=== PATIENT | female | born 1965 | race Caucasian/White ===

== ENCOUNTER → 2016-11-28 | Outpatient (CLI) | payer BC, OTHER ==
[~2016-11-28] VITALS: Ht 162.6 cm; Wt 98.1 kg
[~2016-11-28] MED LIST: ADVAIR 100-501 EACH INH; ADVAIR 250-501 EACH INH; ALEVE220 MG PO; AMITRIPTYLINE H50 M4 PO; AMITRIPTYLINE100 MG PO; ANTIVERT12.5 MG PO; BENADRYL25 MG PO; BUSPIRONE HCL10 MG PO; BUSPIRONE HCL15 MG PO; BUTALB-APAP-CA1 EACH PO; COMPAZINE10 MG RECTAL; COMPAZINE25 MG RECTAL; FIORICET 50-301 EACH PO; FIORICET-COD 51 EACH PO; FIORINAL WITH1 EACH PO; FLAGYL 250 MG250 MG PO; FLONASE 0.05%50 MCG NASAL; LAMICTAL100 MG PO; LAMICTAL150 MG PO; LEVOTHYROXIN0.025 MG PO; LUNESTA3 MG PO; MECLIZINE HCL25 MG PO; NAPROSYN500 MG PO; NORCO 10-325 T1 EACH PO; OXYCODONE-ACET1 EAC2 PO; PERCOCET PO; PREVACID30 MG PO; PRISTIQ50 M1 PO; TOPAMAX 100 MG100 MG PO; TRAMADOL 50 MG50 MG PO; VERAPAMIL ER240 M1 PO; VISTARIL 25 MG25 M1 PO; VOLTAREN100 GM TP; XANAX 0.25 MG0.25 MG PO; XANAX 0.5 MG0.5 MG PO; XARELTO10 MG PO; ZANAFLEX4 MG PO; ZONEGRAN100 MG PO; ZYRTEC10 MG PO
--- NOTE | ~2016-11-28 | HPC ---
[facility] [place] [address] [address] [place] [address] PAIN MANAGEMENT CONSULTATION Name: KELSI TURCIOS Room #: REG NICANOR Reji.#: [id number] Admission: 11/28/16 Attend Phys: Jose Cruz Golden MD Discharge: Date of : 65 Report #: [id number] THIS REPORT FOR: //name// CC: Jose Cruz Chen MD DATE OF SERVICE: 11/28/2016 Followup visit for chronic back pain, osteoarthritis, bilateral knee pain, chronic intractable headaches and management of high risk medications with polypharmacy. This is a 2-month followup visit for the patient. She continues on several centrally acting medications, although we have continued to try and taper these to the lowest effective dose. She reports today that her pain is 2 under current regimen. She has had some increasing headaches recently, she relates much due to stress. She has also had several colds and wonders about immunosuppression due to the fact that she keeps getting infections. She will follow up with Dr. Chen. Today, she says that her pain is mostly in her head. She has chronic achy headaches as well as some cervical pain with radiations through the occiput. MEDICATIONS: Reviewed and reconciled. She remains on multiple centrally acting medications including BuSpar, Topamax, Compazine p.r.n., oxycodone infrequently no more than 30 tablets per month for breakthrough pain, Fioricet without codeine, amitriptyline, meclizine, levothyroxine, Naprosyn as needed, Antivert as needed, alprazolam, fluticasone, Lunesta, verapamil, , Prevacid. ALLERGIES: RIBOFLAVIN, CEFUROXIME. PHYSICAL EXAMINATION: GENERAL: She is pleasant female, is a bit anxious today. VITAL SIGNS: Blood pressure 153/84, heart rate 81 and a BMI is 37.1. CARDIAC: Rhythm was regular. CHEST: Clear. HEENT: She has some nasal congestion. EXTREMITIES: She has tenderness across her back and across her neck with range of motion of the spine. No radicular features noted in the exam today. IMPRESSION: 1. Chronic intractable headache disorder, mixed tension type and migrainous features. She now also appears to have some sinus congestion type headache as well, which worsens her underlying headache disorder. [address] [address] PAIN MANAGEMENT CONSULTATION Name: KELSI TURCIOS Room #: REG CL Reji.#: [id number] Admission: 11/28/16 Attend Phys: Jose Cruz Golden MD Discharge: Date of : 65 Report #: [id number] 2. Osteoarthritis, bilateral knees. 3. Management of chronic intractable pain with medications, high risk medication profile with polypharmacy. RECOMMENDATIONS: We reviewed her terms of our opioid agreement today. I renewed her medications that I have agreed to provide through our clinic, which includes the oxycodone, Fioricet, amitriptyline, Topamax and prochlorperazine. She continues to use Voltaren gel topically. Followup visit is scheduled in 3 months. <ELECTRONICALLY SIGNED> By: Jose Cruz Golden MD 12/28/16 1130 1319 0720 Jose Cruz Golden MD /nt
[2016-11-28 09:18] VITALS: BP 153/84
== END ==
LOC: PAIN 07:13
DX: M17.0 Bilateral primary osteoarthritis of knee (principal); I10 Essential (primary) hypertension

== ENCOUNTER → 2017-02-06 | Outpatient (CLI) | payer BC ==
[~2017-02-06] VITALS: Ht 162.6 cm; Wt 99.9 kg
--- NOTE | ~2017-02-06 | HPC ---
[facility] [address] [place] [address] PAIN MANAGEMENT CONSULTATION Name: KELSI TURCIOS Room #: REG NICANOR WassermanFadiGurwinderFadi#: [id number] Admission: 02/06/17 Attend Phys: Jose Cruz Golden MD Discharge: Date of : 65 Report #: [id number] THIS REPORT FOR: //name// CC: Jose Cruz Chen DATE OF SERVICE: 02/06/2017 Followup visit for chronic back pain, headaches, osteoarthritis and joint pain with degenerative osteoarthritis. The patient returns to the pain clinic today for renewal of her pain medicines. Please see previous dictations for multiple discussions regarding polypharmacy. We have reduced some of her medicines, but she remains on still a fair number of centrally acting medicines. I have agreed to continue prescribing them and her doses are low. She is not on much in the way of an opioid, which seems to be the focus of most tension these days. She is having kind of a rough week. Much of this she attributes to the weather. She has had some other social stressors as well. Pain is a 4/10. Today, her primary pain generator is headache on the left side. She said it also involves a sensation into her teeth. It is constant and dull. REVIEW OF SYSTEMS: Positive for hypertension, nausea, vomiting, stomach problems, fatigue, weakness, weight change with gain, asthma, wheezing, frequent urination, nocturia, nervousness, depression and insomnia. PHYSICAL EXAMINATION: GENERAL: She is pleasant, a little bit anxious. VITAL SIGNS: Blood pressure 155/88, heart rate 76 and respirations 20. BMI is 37.8. NEUROLOGIC: She easily moves from sitting to standing position, ambulates without difficulty. She has some occipital tenderness on the right and left. Cervical range of motion is normal. RESPIRATORY: Breathing is comfortable, with no evidence of dyspnea or shortness of breath. ABDOMEN: Soft. IMPRESSION: 1. Chronic intractable pain with multiple generators including chronic headache disorder, mixed tension type and migrainous features. 2. Osteoarthritis. 3. General malaise. 4. Anxiety and depression. 5. Polypharmacy. 6. Management of low-dose opioid medication. [facility] [address] [place] [address] PAIN MANAGEMENT CONSULTATION Name: KELSI TURCIOS [facility] #: [facility] [id number] Admission: 02/06/17 Attend Phys: Jose Cruz Golden MD Discharge: Date of : 65 Report #: [id number] PLAN: 1. I have renewed her medication under terms of an opioid agreement as well as discussion about polypharmacy once again. 2. I suggested the importance of daily exercise and outside walk. 3. Stress management techniques have been discussed. 4. Followup visit planned in 3 months. By: [id number] Jose Cruz Golden MD /nt
[2017-02-06 10:35] VITALS: BP 155/88
== END | disposition home or self-care (01) ==
LOC: PAIN 06:46
DX: M19.90 Unspecified osteoarthritis, unspecified site (principal); F41.9 Anxiety disorder, unspecified; F32.9 Major depressive disorder, single episode, unspecified; I10 Essential (primary) hypertension; R51 Headache

== ENCOUNTER → 2017-04-21 | Outpatient (CLI) | payer BC ==
[~2017-04-21] VITALS: Ht 160 cm; Wt 98.5 kg
[~2017-04-21] MED LIST changes: +MOBIC15 MG PO
--- NOTE | ~2017-04-21 | HPC ---
[facility] [place] [address] [place] [address] PAIN MANAGEMENT CONSULTATION Name: KELSI TURCIOS Room #: REG NICANOR WassermanFadiGurwinderFadi#: [id number] Admission: 04/21/17 Attend Phys: Jose Cruz Golden MD Discharge: Date of : 65 Report #: [id number] THIS REPORT FOR: //name// CC: Jose Cruz Chen MD DATE OF SERVICE: 04/21/2017 DATE OF REGISTRATION: 04/21/2017. REASON FOR VISIT: Followup visit for chronic headache disorder and management of polypharmacy. SUBJECTIVE: The patient returns to pain clinic today for a 20-minute followup visit. She is doing pretty well. She has some ongoing stressors that include family and social stress, but otherwise, she is doing pretty well. She remains on a number of different medications. We have tapered some of them. We reviewed each of her centrally acting medications carefully. I have agreed to provide her with low-dose opioids, but my concern is not so much that but the multiple medications that she is taking. She suffers from anxiety and depression. There have been no other health changes other than some orthopedic issues at her wrist. She has tenderness of her thumb and inflammation. She has seen Dr. Precious Garcia who has performed fluoroscopically guided injections of the metacarpal-carpal joint on the right and left thumbs and placed her in a brace. Surgery may be indicated at some point. Headaches today are 3. They are generally worse with weather changes. In this stable weather, it has been good. PHYSICAL EXAMINATION: GENERAL: Her affect is pleasant. She has always been quite easy going in my office. She does not show overt signs of severe anxiety or depression. VITAL SIGNS: Her blood pressure is 144/99, heart rate 87, BMI is 38.5. EXTREMITIES: I examined her wrist with localized tenderness noted in each thumb and metacarpal-carpal joint. HEAD: Otherwise, no occipital tenderness today or temporal discomfort. IMPRESSION: 1. Chronic intractable mixed type headaches. 2. Osteoarthritis, particularly bilateral thumbs. 3. Anxiety and depression. 4. Polypharmacy. 5. Management of high risk medication combination. PLAN: I renewed her Fioricet, amitriptyline, Compazine, oxycodone and Topamax. [address] [address] PAIN MANAGEMENT CONSULTATION Name: KELSI TURCIOS Room #: REG [facility] Reji.#: [id number] Admission: 04/21/17 Attend Phys: Jose Cruz Golden MD Discharge: Date of : 65 Report #: [id number] Precautions regarding her use have been given. She has good track record with these medicines, understands they are affecting her. I will see her back in the pain clinic in 3 months. <ELECTRONICALLY SIGNED> By: Jose Cruz Golden MD 04/24/17 1714 1648 2 Jose Cruz Golden MD /dago
[2017-04-21 14:05] VITALS: BP 144/99
== END ==
LOC: PAIN 06:15
DX: G44.89 Other headache syndrome (principal); M19.042 Primary osteoarthritis, left hand; M19.041 Primary osteoarthritis, right hand; F41.9 Anxiety disorder, unspecified

== ENCOUNTER → 2017-07-07 | Outpatient (CLI) | payer BC ==
[~2017-07-07] VITALS: Ht 160 cm; Wt 99.6 kg
[~2017-07-07] MED LIST changes: +CELEBREX 200 M200 M1 PO; +GLUCOSAMINE HC500 MG PO
--- NOTE | ~2017-07-07 | HPC ---
[facility] [place] [address] [place] [address] PAIN MANAGEMENT CONSULTATION Name: KELSI TURCIOS Room #: REG NICANOR Mendoza#: [id number] Admission: 07/07/17 Attend Phys: Jose Cruz Golden MD Discharge: Date of : 65 Report #: [id number] THIS REPORT FOR: //name// CC: Jose Cruz Chen MD DATE OF REGISTRATION: 07/07/2017. Followup visit for management of high risk medications and polypharmacy. HISTORY OF PRESENT ILLNESS: The patient returns to pain clinic today and I am going to continue her on her same medication dose. She is doing reasonably well and is stable. Denies significant side effects. Our focus has always been on polypharmacy not so much on opioids and I have elected to continue her on her current regimen, which has been reduced to a point where she feels that she cannot make further adjustments. She deals with daily headaches, which are mixed type and has pain in her hands, mostly in her thumbs. She was given of Dr. Francisco Covarrubias as health program specialist for referral. She has some history of anxiety and depression, but is I think stable at this point in time. PHYSICAL EXAMINATION: GENERAL: She is pleasant and outgoing. VITAL SIGNS: Blood pressure 133/76, heart rate 76, respirations 18. She is 5 feet 3 inches, 160 pounds, BMI is 38.9. EXTREMITIES: Examination of the hands reveals a palmar rubor. This is not noticed elsewhere in the body. There is local tenderness at the metacarpal phalangeal joint as well as along the metacarpal carpal articulation of each hand. IMPRESSION: 1. Chronic intractable mixed type headaches. She has daily headache component and also tension headaches. 2. Osteoarthritis involving the hands. Much of this is in the metacarpal phalangeal and the metacarpal carpal articulation of the thumb on each hand. 3. Polypharmacy regimen, closely monitor. 4. Management of opioid medication, small dose and high risk medication. PLAN: I renewed medications as follows, Topamax 100 mg once daily with 30 tablets, 2 refills and amitriptyline 100 mg at bedtime, 90 tablets for 3 months, Fioricet plain without codeine 1 tablet 3 times daily as needed for severe headache, #50 with 2 refills. She uses less than 2 tablets a day on average and finally oxycodone 10/325 one tablet b.i.d. p.r.n. severe headache, #30, she uses this only for most severe headaches. She meets criteria for continuing these medications, she note reports improvement in analgesia and activity. She reports no significant side effects [address] [place] [address] PAIN MANAGEMENT CONSULTATION Name: KELSI TURCIOS Chay Room #: REG NICANOR Grubbs#: [id number] Admission: 07/07/17 Attend Phys: Jose Cruz Golden MD Discharge: Date of : 65 Report #: [id number] that we have not addressed and she is careful about maintaining her medications cautiously under terms of our opioid agreement. Followup visit planned in 3 months. <ELECTRONICALLY SIGNED> By: Jose Cruz Golden MD 07/10/17 1351 0822 0855 Jose Cruz Golden MD /nt
[2017-07-07 11:27] VITALS: BP 133/76
== END ==
LOC: PAIN 07:02
DX: Z76.0 Encounter for issue of repeat prescription (principal); R51 Headache; M19.042 Primary osteoarthritis, left hand; M19.041 Primary osteoarthritis, right hand; Z79.891 Long term (current) use of opiate analgesic; Z88.8 Allergy status to other drugs, medicaments and biological substances; Z79.899 Other long term (current) drug therapy; Z87.891 Personal history of nicotine dependence

== ENCOUNTER → 2017-09-15 | Outpatient (CLI) | payer BC ==
[~2017-09-15] VITALS: Ht 162.6 cm; Wt 98.9 kg
[~2017-09-15] MED LIST changes: +NAPROXEN; +TOPAMAX 25 MG T25 M1 PO
--- NOTE | ~2017-09-15 | HPC ---
[facility] [place] [address] PAIN MANAGEMENT CONSULTATION Name: KELSI TURCIOS Room #: REG NNEKASukh Grubbs#: [id number] Admission: 09/15/17 Attend Phys: Jose Cruz Golden MD Discharge: Date of : 65 Report #: [id number] THIS REPORT FOR: //name// CC: Jose Cruz Chen DATE OF SERVICE: 09/15/2017 REASON FOR VISIT: Followup visit for polypharmacy and chronic headaches. HISTORY OF PRESENT ILLNESS: The patient is seen in followup today for management of her complex medication regime. She was last seen on 07/07/2017. Although, she takes small doses and does not take all of her centrally acting medications daily. She heard once again my be of concern about her polypharmacy. I accounted her number of medications again today for her as I do at each visit. She is on daily Topamax, daily amitriptyline, daily Celebrex, daily alprazolam and daily Lunesta. Roughly once a week, she uses Compazine suppository; 6 times a week, she uses Fioricet for headache. Once a day, she uses an oxycodone 10 mg for severe pain averaging 30 per month. Meclizine is taken p.r.n. nausea and dizziness. We discussed stress features ongoing in her life. She has a child, 17-year old, is going through many changes and this provides great stress for her. Academically, he/she is not doing well in school. She is doing her best to help support her child. Sleep has been intermittent, oftentimes awaken due to urinary incontinence. This could be a medication related side effect. She has had fatigue, weakness and generalized discomfort. PRIMARY COMPLAINTS: Right-sided headaches with dental pain. She has cervical myofascial tightness and complains of her headache pain as a dull, constant pressure sensation, 5/10 affected by weather and seasonal allergies. PHYSICAL EXAMINATION: GENERAL: She is really quite delightful and pleasant without signs of overmedication despite her multiple centrally acting medications. VITAL SIGNS: Her blood pressure is 157/80, heart rate 78, respirations 16 and BMI is 37.4. HEENT: Pupils are equal, round and reactive to light. EOMs intact. She has mild mucous membrane dryness. IMPRESSION: 1. Chronic intractable headaches, mixed type with tension type headaches daily and occasional migraine. [facility] [address] [place] [address] PAIN MANAGEMENT CONSULTATION Name: KELSI TURCIOS Room #: REG CLI [facility]#: [id number] Admission: 09/15/17 Attend Phys: Jose Cruz Golden MD Discharge: Date of : 65 Report #: [id number] 2. Generalized osteoarthritis involving the hands primarily. 4. Fatigue and weakness. 5. Polypharmacy regimen with likely drug related interaction side effects. 6. Management of small amount of opioid medication under terms of an opioid agreement. PLAN: 1. Taper off of Topamax and evaluate. 2. Continue on medications provided by my clinic, which are oxycodone for severe breakthrough pain to avoid the Emergency Room and Fioricet one tablet t.i.d. p.r.n. severe tension type headache. I also gave her Compazine 12 suppositories, which usually lasts about 3 months. 3. Followup visit is scheduled in approximately 3 months. We will talk to her over the phone if she has issues or problems with tapering off of the Topamax. By: [id number] Jose Cruz Golden MD /nt
[2017-09-15 10:34] VITALS: BP 157/80
== END ==
LOC: PAIN 07:48
DX: G43.909 Migraine, unspecified, not intractable, without status migrainosus (principal)

== ENCOUNTER → 2017-12-08 | Outpatient (CLI) | payer BC, OTHER ==
[~2017-12-08] VITALS: Ht 162.6 cm; Wt 98.0 kg
[~2017-12-08] MED LIST changes: +AZITHROMYCIN 2250 MG PO; +CYMBALTA60 MG PO; -FIORICET-COD 51 EACH PO; +MIRALAX17 GM PO; +MUCINEX600 MG PO; +TOPAMAX 25 MG T25 MG PO
--- NOTE | ~2017-12-08 | HPC ---
[facility] [place] [place] [address] PAIN MANAGEMENT CONSULTATION Name: KELSI TURCIOS Room #: REG NICANOR MendozaFadi#: [id number] Admission: 12/08/17 Attend Phys: Jose Cruz Golden MD Discharge: Date of : 65 Report #: [id number] THIS REPORT FOR: //name// CC: Francisco Chen MD DATE OF SERVICE: 12/08/2017 Followup visit for chronic intractable headaches. The patient returns to the Pain Clinic today in followup. I have been helping her with polypharmacy management. She is not on a lot of opioid medication, but has been on a number of centrally acting medications which were reviewed in this dictation. She has seen Dr. Francisco Covarrubias. She was also assessed for polypharmacy. He ran a battery of tests as his note describes and she has told me that followup is deemed that she does not have ongoing connective tissue disorder. Dr. Covarrubias made himself available to help with symptom management. I have told her that she is welcome to follow up in this clinic, although we should establish who will be managing medications. The patient has been a lot of things going on in her life. Her child continues to be stressful. She is doing her best to support him. She has been sick with an ongoing upper respiratory tract infection for months. This has been troublesome to her. She has not been hospitalized. Today, she reports her pain as a 2/10 with medication. She notices the pain is exacerbated in the right side of her head with changes in weather and with allergies. She denies any dental pain today. She has had some tension with myofascial discomfort. PHYSICAL EXAMINATION: The patient is pleasant, alert and oriented with a blood pressure 156/108, heart rate 62, respirations 16 and BMI of 37. She is able to ambulate without difficulty. Pupils were noted to be equal, round, reactive to light. EOMs are intact. Mucous membranes are moist. She moves all extremities. IMPRESSION: 1. Chronic intractable headaches with mixed type tension and occasional migraine features on the right. 2. Generalized osteoarthritis involving the hands. 3. Fatigue and weakness. 4. Polypharmacy regimen. We have been working to taper her medications to [address] [address] PAIN MANAGEMENT CONSULTATION Name: KLESI TURCIOS Room #: REG [facility].#: [id number] Admission: 12/08/17 Attend Phys: Jose Cruz Golden MD Discharge: Date of : 65 Report #: [id number] lowest effective dose. 5. Small amount of opioids provided under an opioid agreement, which was reviewed today. Her daily morphine milligram equivalence is no more than 10-15 MME. Medications renewed including Topamax up to 75 mg per day, Voltaren gel, Compazine suppositories total of 12 for intractable nausea, Fioricet 50 mg per month for severe headache and oxycodone 10/325 for intractable headache. Followup visit planned in 3 months. <ELECTRONICALLY SIGNED> By: Jose Cruz Golden MD 01/14/18 1640 1528 0015 Jose Cruz Golden MD /nt
[2017-12-08 12:41] VITALS: BP 156/108
== END ==
LOC: PAIN 07:10
DX: G43.919 Migraine, unspecified, intractable, without status migrainosus (principal); M19.042 Primary osteoarthritis, left hand; M19.041 Primary osteoarthritis, right hand; R53.83 Other fatigue; R53.1 Weakness; F11.90 Opioid use, unspecified, uncomplicated

== ENCOUNTER → 2018-02-02 | Outpatient (CLI) | payer BC, OTHER ==
[~2018-02-02] VITALS: Ht 162.6 cm; Wt 97.3 kg
--- NOTE | ~2018-02-02 | HPC ---
[facility] [place] [address] PAIN MANAGEMENT CONSULTATION Name: KELSI TURCIOS Room #: REG NICANOR WassermanFadiGurwinderFadi#: [id number] Admission: 02/02/18 Attend Phys: Jose Cruz Golden MD Discharge: Date of : 65 Report #: [id number] THIS REPORT FOR: //name// CC: Jose Cruz Chen MD DATE OF SERVICE: 02/02/2018 Followup visit for chronic pain, depression, anxiety and headaches. The patient returns to pain clinic today in tears. I have seen her now for about 3 years. This is the first time I have seen her actually crying. She spent the first 10 minutes of our visit discussing her hands. She has been under the treatment of Dr. Precious Garcia. She has had injections in the past, but the most recent injections performed at the metacarpophalangeal joint of the thumb on each side actually worsened her condition, particularly on the left. She says it has made it difficult for her to use her hands. She cried remarking that she is 52 years of age and she cannot do the things that she needs to do to help with her children and her family and is missing out on much of life. This is reflected in her impact of pain score. It is a 47 today suggesting severe impact. This is generally with activities, normal work, and she is sleeping more poorly. She says that the pain interferes with enjoyment of life at a 7/10. MEDICATIONS: Reviewed and reconciled. PHYSICAL EXAMINATION: GENERAL: She is tearful female. VITAL SIGNS: Blood pressure is 155/90, heart rate 82, respirations 20, O2 sat 100%. Her BMI is 36.8. EXTREMITIES: Examination of the hands reveals them to be flushed and red bilaterally. There is no allodynia or hyperalgesia. She has mild tenderness over the metacarpophalangeal joint. [employer] strength is adequate. There is no pain in the forearm, elbow or shoulder to suggest a complex regional pain syndrome. She has some pain in the left hip with history of osteoarthritis. She walks with antalgic gait. IMPRESSION: 1. Chronic intractable pain. Osteoarthritis. Much of her pain now involving the thumbs of each hand. 2. History of fatigue, weakness, generalized lethargy. 3. Polypharmacy regimen, long discussed. 4. Chronic intractable headaches. 5[place] [address] PAIN MANAGEMENT CONSULTATION Name: KELSI TURCIOS Room #: REG NNEKASukh Grubbs#: [id number] Admission: 02/02/18 Attend Phys: Jose Cruz Golden MD Discharge: Date of : 65 Report #: [id number] RECOMMENDATIONS: 1. I have asked her to speak with her psychiatrist. She may possibly be able to transition off of her amitriptyline onto a more effective drug. There are new and better antidepressants. 2. We will continue to provide oxycodone 10/, no more than 2 tablets per day. This correlates to a morphine milligram equivalency of 30 per day well under the CDC guideline. She understands the importance of safeguarding her medication. Fioricet has been helpful for her headaches. We talked about limiting her Tylenol to no more than 9886-8265 mg a day. 3. Wellness behaviors, activities, relaxation, stress management, exercise have all been discussed in great detail and reviewed again today. Time in the clinic 25-30 minutes. Followup visit scheduled in 3 months. <ELECTRONICALLY SIGNED> By: Jose Cruz Golden MD 02/23/18 1408 1625 1800 Jose Cruz Golden MD /nt
[2018-02-02 11:14] VITALS: BP 155/90
== END ==
LOC: PAIN 07:22
DX: G89.29 Other chronic pain (principal); M19.90 Unspecified osteoarthritis, unspecified site; F32.9 Major depressive disorder, single episode, unspecified; G44.221 Chronic tension-type headache, intractable; Z91.14 Patient's other noncompliance with medication regimen; R53.1 Weakness; R53.83 Other fatigue

== ENCOUNTER → 2018-05-21 | Outpatient (CLI) | payer BC, OTHER ==
[~2018-05-21] VITALS: Ht 160 cm; Wt 100.2 kg
[~2018-05-21] MED LIST changes: -MIRALAX17 GM PO; -TOPAMAX 25 MG T25 MG PO
--- NOTE | ~2018-05-21 | HPC ---
[facility] [place] [address] PAIN MANAGEMENT CONSULTATION Name: KELSI TURCIOS Room #: REG NICANOR Humera#: [id number] Admission: 05/21/18 Attend Phys: Jose Cruz Golden MD Discharge: Date of : 65 Report #: [id number] THIS REPORT FOR: //name// CC: Jose Cruz Chen MD DATE OF SERVICE: 05/21/2018 DATE OF REGISTRATION: 05/21/2018 REASON FOR VISIT: Followup visit for chronic pain, polypharmacy and for bilateral thumb pain. HISTORY OF PRESENT ILLNESS: I saw the patient earlier this month and we discussed injection under fluoroscopic guidance of the junction of her thumb metacarpal and carpal bilaterally where she has exquisite localized tenderness. She has had previous injections there before. I told her that we could perform the injections under fluoroscopic guidance and I have felt that this would be quite safe. I have reviewed the procedure, potential risks and benefits. She is not quite as bad as she was at last visit when she was crying throughout her visit because of the exquisite pain. MEDICATIONS: Reviewed, particularly the ones provided through our clinic. She is on oxycodone 10/325 three times daily, Voltaren transdermal and also she has Fioricet for migraine headaches. She was recently started on Cymbalta by her psychiatrist and this seems to have helped her headaches. Prior to that, she was taking Fioricet up to 3 or 4 times a day and ran out of the prescription. I was providing her no more than 50 tablets per month. I have agreed to renew her Fioricet, but I have talked to her extensively today about the use of medication and the treatment of headaches and the possibility of rebound. She should use only for severe pain. PHYSICAL EXAMINATION: Today, she is pleasant, alert and oriented, without signs of anxiety. Her blood pressure is 150/80, heart rate is 67. Examination of the affected area of the thumbs reveals no swelling or tenderness, no effusion, good range of motion. There is exquisite localized tenderness at the junction of her first metacarpal and its interaction with the medial carpal bones. IMPRESSION: 1. Osteoarthritis of the hand. 2. Chronic intractable headaches mixed disorder. 3. History of depression. [address] [address] PAIN MANAGEMENT CONSULTATION Name: KELSI TURCIOS Room #: REG NICANOR Grubbs#: [id number] Admission: 05/21/18 Attend Phys: Jose Cruz Golden MD Discharge: Date of : 65 Report #: [id number] 4. Chronic osteoarthritis of the knees and spondylitic back pain with good improvement obtained by oxycodone 10 mg 3 times daily over 45 morphine milligram equivalents. PLAN: 1. I have renewed her medications for the next month, which is Fioricet and plan to see her back in June. 2. Injection bilateral articulation joint of the trapezium and the first metacarpal. DESCRIPTION OF PROCEDURE: The patient was taken to fluoroscopic suite and we began first on the right. Using fluoroscopic guidance, I gently advanced a 27-gauge needle with local anesthetic into the joint capsule. I gently injected 10 mg of triamcinolone and 0.25 mL of 0.25% bupivacaine. Needle was removed. We then proceeded with the injection on the left. Needle was gently advanced into the joint space and injection was repeated. We were able to see some distention of the joint capsule. I injected once again 10 mg of triamcinolone with a little less bupivacaine in that location. It was more uncomfortable with the joint capsule distention. She tolerated the procedure well. She was observed in the recovery room for a short time. Pain score was reduced to 2 and a followup visit scheduled as needed. <ELECTRONICALLY SIGNED> By: Jose Cruz Golden MD 06/10/18 1622 1653 1948 Jose Cruz Golden MD /nt
[2018-05-21 12:20] VITALS: BP 136/76
== END | disposition home or self-care (01) ==
LOC: PAIN 07:08
DX: M19.041 Primary osteoarthritis, right hand (principal); M19.042 Primary osteoarthritis, left hand; G89.29 Other chronic pain; G44.89 Other headache syndrome; M47.896 Other spondylosis, lumbar region; I10 Essential (primary) hypertension; M17.0 Bilateral primary osteoarthritis of knee; Z86.59 Personal history of other mental and behavioral disorders; Z79.891 Long term (current) use of opiate analgesic; Z88.8 Allergy status to other drugs, medicaments and biological substances; Z79.899 Other long term (current) drug therapy

== ENCOUNTER → 2018-06-11 | Outpatient (CLI) | payer BC, OTHER ==
[~2018-06-11] VITALS: Ht 152.4 cm; Wt 98.0 kg
--- NOTE | ~2018-06-11 | CRIT ---
[facility] [place] [address] CRITICAL CARE NOTE Name: KELSI TURCIOS Room #: REG NICANOR Grubbs#: [id number] Admission: 06/11/18 Attend Phys: Jose Cruz Golden MD Discharge: Date of : 65 Report #: [id number] THIS REPORT FOR: //name// CC: Jose Cruz Chen DATE OF SERVICE: 06/11/2018 Kelsi returns to pain clinic today in followup. She continues to be in better spirits and much improved from her visits earlier this spring. She was upbeat throughout her visit. At her last visit, I injected the metacarpal-carpal joint, articulation of the trapezium and the first metacarpal. I did this bilaterally using fluoroscopic guidance. She is markedly improved on the right and is now using her hand fully to perform simple tasks of activities of daily living including brushing her teeth, combing and eating. The left is not quite as bad, but is still improved. She also has improvement along the forearm. The relief has been now sustained for at least 3 weeks and we are hoping for longer. Dr. Chen prescribed all of her medications except for medications related to pain. She is on oxycodone 10/325 up to 3 tablets daily and Fioricet one tablet twice daily. I reviewed her other polypharmacy and one of our goal has been to minimize her use of other medications. She reports that the pain medication she takes has made dramatic improvement in her pain, her ability to function throughout the day and she has no significant side effects. She is grateful for the relief that she receives. She safeguards her medications carefully as is outlined in our opioid agreement. PHYSICAL EXAMINATION: GENERAL: Pleasant and upbeat. There are no signs of overmedication, depression or anxiety. She is in fact quite pleasant, outgoing and funny. VITAL SIGNS: Her blood pressure is 126/76, heart rate 68, respirations 14. MUSCULOSKELETAL: Good movement of the thumb on each hand with minimal tenderness. Mild tenderness of the back and knees due to spondylosis and osteoarthritis. She denies headache. IMPRESSION: 1. Chronic intractable pain with osteoarthritis involving the hand. 2. History of depression. 3. Mixed headache disorder. 4. Chronic pain related to osteoarthritis, primary joints involved knees and she has facet arthropathy with spondylosis. [address] [address] CRITICAL CARE NOTE Name: KELSI TURCIOS Room #: REG NICANOR Grubbs#: [id number] Admission: 06/11/18 Attend Phys: Jose Cruz Golden MD Discharge: Date of : 65 Report #: [id number] PLAN: Continue on medications for intractable pain per our agreement. She is on time with medications. Drug screening will be performed at my discretion going forward. I will see her back in the pain clinic in 3 months. Safeguarding again was strong topic of our today's conversation. By: 1632 2035 Jose Cruz Golden MD /dago
[2018-06-11 13:44] VITALS: BP 138/87
== END ==
LOC: PAIN 06:19
DX: M47.816 Spondylosis without myelopathy or radiculopathy, lumbar region (principal); G44.009 Cluster headache syndrome, unspecified, not intractable; M17.0 Bilateral primary osteoarthritis of knee; M19.041 Primary osteoarthritis, right hand; G89.4 Chronic pain syndrome; F32.9 Major depressive disorder, single episode, unspecified

== ENCOUNTER → 2018-09-10 | Outpatient (CLI) | payer BC, OTHER ==
[~2018-09-10] VITALS: Ht 160 cm; Wt 99.8 kg
[~2018-09-10] MED LIST changes: +MIRALAX17 GM PO; +TOPAMAX 25 MG T25 MG PO
--- NOTE | ~2018-09-10 | HPC ---
[facility] [place] [address] PAIN MANAGEMENT CONSULTATION Name: KELSI TURCIOS Room #: REG NNEKASukh Grubbs#: [id number] Admission: 09/10/18 Attend Phys: Billie Kelly Discharge: Date of : 65 Report #: [id number] THIS REPORT FOR: //name// CC: Billie Chen MD DATE OF SERVICE: 09/10/2018 CHIEF COMPLAINT: The patient returns to pain clinic today for followup for her medication management for her chronic intractable pain with osteoarthritis involving her hand. HISTORY OF PRESENT ILLNESS: The patient returns today for medication management for her osteoarthritis in her hands. The patient tells me that her left is worse than the right. She is also hopeful to get an injection in the near future from Dr. Jose Cruz Golden. The patient tells me her injections that she had in May helped 85% for 2-1/2 months, maybe a little longer in her right hand, but the left, her pain returned sooner, but thinks that she had much improvement and would like a repeat of those injections. The patient does tell me that she is thinking about seeing another orthopedic as a consult since the last orthopedic she saw was unsure if she wanted her to do surgery on her hands. She will discuss this with Dr. Chen tomorrow and try to get a consult set up with an orthopedic hand specialist at [facility]. The patient does complain of a pain score of 6-7 mostly in her left hand. She tells me that she does not have any daytime somnolence and she is managing her constipation at this time. ALLERGIES: RIBOFLAVIN AND CEFTIN. CURRENT MEDICATIONS: The patient listed current medications, MiraLax, oxycodone 10/325 up to 3 times a day, Topamax 75 mg at bedtime, Zithromax daily, Voltaren gel as needed, Cymbalta 60 mg daily, Celebrex 200 mg daily, buspirone 10 mg twice a day, meclizine 25 mg as needed, Fioricet 2-3 times a day, Xanax 3 times a day as needed, Advair, Lunesta, verapamil 240 mg 2 tablets at bedtime, Zyrtec 10 mg tablets, Prevacid, Compazine suppositories as needed. PQRS: The patient has a history of osteoarthritis in her bilateral hands. Denies rheumatoid arthritis. Height is 5 feet 3 inches, weight 220, BMI is 39. Vital signs 149/81, pulse is 75, respirations 16, oxygen sat is 100% on room air. Pain score today is 7/10. Fall risk: Denies dizziness, does not need help walking or standing and has not fallen in the last 3 months. The patient is not on any blood thinners and does have a history of hypertension. Her opioid therapy is greater than 6 weeks. Therefore, she has opioid signed contract on the chart. Her risk assessment tools provided at a moderate risk and her functional assessment is 47/70. The patient denies recreational drug use, is a former smoker, does not use [address] [address] PAIN MANAGEMENT CONSULTATION Name: KELSI TURCISO Room #: REG NICANOR Grubbs#: [id number] Admission: 09/10/18 Attend Phys: Billie Kelly Discharge: Date of : 65 Report #: [id number] cigarettes at this time and does not use any alcohol. The patient's [place] and [place] PDMP were checked. Dr. Jose Cruz Golden is the only prescriber for her narcotics. She does have her psychiatrist filling for benzodiazepine. The patient states that she keeps her medicine in a safe place and has actually brought her pill bottles with her today and the count was appropriate. PHYSICAL EXAMINATION: GENERAL: Very pleasant 52-year-old upbeat today. No signs of overmedication or somnolence. HEENT: Normocephalic, atraumatic. Extraocular eye muscles are intact. Mucous membranes are moist. MUSCULOSKELETAL: Good movement of the thumb and fingers on each hand with slight tenderness, more tenderness on the left joint of her thumb metacarpal carpal joint than on the right hand. She also has mild tenderness on her back and her knees due to spondylosis and osteoarthritis. Denies a headache today. IMPRESSION: 1. Chronic intractable pain with osteoarthritis involving the hand. 2. History of depression. 3. Headache disorder. 4. Chronic pain related to osteoarthritis mainly involving knees and hands. 5. Facet arthroscopy with spondylosis. 6. Complex medication management. PLAN: It was decided to continue her medications today with a few slight changes. 1. Her oxycodone 10/325 will remain 3 tablets a day with release of today and in 4-week and an 8-week. 2. Fioricet. The patient would like to increase the amount that she may have in a day from 2-3, much discussion about this as the patient was wanting 60 tablets. We discussed polypharmacy and the amount of medication per day, trying to keep it as low as possible with the most benefit. The patient understands this, wondering if we can make it, so the days that she does have migraine, she is able to take 3 tablets a day, 1 every 8 hours, but still remain at 50 tablets per month. I am agreeable with this and we will write for Fioricet 50 tablets per month with 2 additional refills, one tablet 3 times a day as needed for migraines. 3. Topamax 25 mg 3 tablets at bedtime for a total of 90 with 2 additional refills. 4. Compazine. I gave her a rx for 25 mg rectal suppositories with a total of 15 per month up to 2 times a day. This medicine is for nausea with associated migraines that she takes on an as needed basis. 5. Plan was discussed to inject her hands with Dr. Golden since she had [facility] [email or web address] [address] PAIN MANAGEMENT CONSULTATION Name: ALBINOKELSI OLIVARES Room #: REG NICANOR Grubbs#: [id number] Admission: 09/10/18 Attend Phys: Billie Kelly Discharge: Date of : 65 Report #: [id number] beneficial relief from her last injections in May. Appointment will be made with Dr. Jose Cruz Golden in the next week to have this done. 6. Collaboration of care was given with Dr. Jose Cruz Golden today. <ELECTRONICALLY SIGNED> By: Billie Kelly 09/11/18 1219 1151 0135 Billie Kelly /nt
[2018-09-10 10:41] VITALS: BP 149/81
== END ==
LOC: PAIN 06:53
DX: M19.042 Primary osteoarthritis, left hand (principal); M19.041 Primary osteoarthritis, right hand; M17.0 Bilateral primary osteoarthritis of knee; G89.4 Chronic pain syndrome; R51 Headache; F32.9 Major depressive disorder, single episode, unspecified; Z79.899 Other long term (current) drug therapy

== ENCOUNTER → 2018-09-14 | Outpatient (CLI) | payer BC, OTHER ==
[~2018-09-14] VITALS: Ht 160 cm; Wt 99.8 kg
--- NOTE | ~2018-09-14 | HPC ---
[facility] [place] [address] PAIN MANAGEMENT CONSULTATION Name: KELSI TURCIOS Room #: REG NICANOR Humera#: [id number] Admission: 09/14/18 Attend Phys: Jose Cruz Golden MD Discharge: Date of : 65 Report #: [id number] THIS REPORT FOR: //name// CC: Jose Cruz Chen MD REASON FOR CONSULTATION: Followup visit for chronic pain and bilateral hand pain with osteoarthritis. HISTORY OF PRESENT ILLNESS: The patient was last seen in the clinic on 09/10 by Billie Kelly for medication management. She is here today for injection therapy. In the past, she has responded very well to a simple injection of the most tender joint in her hand, which limits her use of both hands. X-ray evidence is not strong for an arthritic joint, but we have not done extensive imaging. She has exquisite tenderness identified on x-ray at the articulation of the trapezium in the first metacarpal. This affects the use of her thumb. I have injected this joint gently with bupivacaine and a small amount of triamcinolone on 2 previous occasions with excellent response. She has nearly complete pain relief. She is here today requesting the previous injection, as pain is increased with some significance over the last several weeks. Her last injection was on 05/21/2018. I reviewed those injection films to confirm our injection and medication placement, which works so effectively. All medications have been renewed under terms of written agreement as noted by the excellent history provided by Billie Kelly APN. I discussed those issues with Ms. Kelly and the patient at her previous visit. PHYSICAL EXAMINATION: GENERAL: Reveals pleasant female. She is a bit anxious, but not overly so. VITAL SIGNS: Her blood pressure is 159/85, heart rate 64. EXTREMITIES: Shows with an exquisite tenderness located and confirmed by x-ray overlying the first metacarpal and most lateral carpal bone of the trapezium. There is pain with medical equipment repairer and flexion of that joint, as well as extension. There is no swelling or erythema noted. No other joints appear to be tender. IMPRESSION: 1. Chronic depression and intractable pain with osteoarthritis involving the hand. I believe this is an arthritic type situation based upon the location and response to injection. 2. History of depression. 3. Mixed headache disorder. 4. Chronic pain with multiple pain generators. PROCEDURE: She was taken to fluoroscopic suite where she was placed in the seated position. Good imaging was obtained and I was able to anesthetize the [address] [address] PAIN MANAGEMENT CONSULTATION Name: KELSI TURCIOS Room #: REG [facility]#: [id number] Admission: 09/14/18 Attend Phys: Jose Cruz Golden MD Discharge: Date of : 65 Report #: [id number] skin overlying this joint. Using a 27-gauge needle, I gently advanced to the capsule of the joint, confirming its location by x-ray. I then gently injected 0.25 mL of 0.5% bupivacaine mixed with 15 mg of triamcinolone first on the right and then the left. I injected both joints identically using x-ray guidance. She tolerated the procedure well. She was observed for short time and discharged. Her pain reduction was marked once again. We hope for continued long-term benefit from these injections and we will try to perform them no more frequently than 3-4 times a year or less. She is instructed to use other conservative measures to help with pain including topical analgesics, heat, and ice. Follow up as needed. By: 0716 0753 Jose Cruz Golden MD /nt
[2018-09-14 10:30] VITALS: BP 159/85
== END | disposition home or self-care (01) ==
LOC: PAIN 08:06
DX: M19.042 Primary osteoarthritis, left hand (principal); M19.041 Primary osteoarthritis, right hand; G89.29 Other chronic pain; F32.9 Major depressive disorder, single episode, unspecified; Z88.8 Allergy status to other drugs, medicaments and biological substances; Z79.899 Other long term (current) drug therapy; Z87.891 Personal history of nicotine dependence

== ENCOUNTER → 2018-11-30 | Outpatient (CLI) | payer BC, OTHER ==
[~2018-11-30] VITALS: Ht 160 cm; Wt 98.7 kg
--- NOTE | ~2018-11-30 | HPC ---
[facility] Josie Gallegos [place] [address] PAIN MANAGEMENT CONSULTATION Name: KELSI TURCIOS Room #: REG NICANOR WassermanFadiGurwinderFadi#: [id number] Admission: 11/30/18 Attend Phys: Jose Cruz Golden MD Discharge: Date of : 65 Report #: [id number] THIS REPORT FOR: //name// CC: Jose Cruz Chen MD DATE OF SERVICE: 11/30/2018 Followup visit for chronic pain. Primary complaint today is bilateral hand pain, which is chronic. She has tenderness overlying the first metacarpal articulation with the trapezium on each hand. She also has chronic headaches with migrainous features, but also tension type as well. Chronic daily headaches, averaging typically one headache daily. The patient returns to Pain Clinic today in followup. She has chronic depression, chronic intractable pain and is being treated with polypharmacy by more than one physician. This has been an issue. I have discussed with her each visit. I will need to talk to Dr. Chen to see if we can figure out a better way to manage her going forward. She was depressed and tearful somewhat today, looking for more answer for her many pains. I reviewed medications that she takes of its central acting nature. They are as follows: Lunesta; alprazolam; buspirone; Cymbalta; butalbital/acetaminophen/caffeine or Fioricet; oxycodone 10/325 three times daily; and Topamax. I prescribed for her the Topamax and the oxycodone. I also gave her Fioricet for her headaches. The oxycodone helps her hands tremendously. I am also concerned, however, that some of her opioid medications may be causing a rebound headache phenomenon and we discussed it today. She has constantly relied on medications for her anxiety, sleep disorder, depression and pain. Transitioning her to a lesser use of medication has been difficult. She has been reluctant to reduce her use of oral medications in an attempt to maintain day-to-day function with her family. We have gradually increased her reliance on opioid medication. In reviewing her chart after she left the office, I feel that I should address this with Dr. Chen and see if we can work together to try and come up with a plan. She may need a drug program for tapering her polypharmacy, although this is very challenging when someone is living a busy life. PHYSICAL EXAMINATION: GENERAL: Today, she is tearful at various times during her visit and frustrated by her ongoing pain issues. VITAL SIGNS: Her blood pressure is 159/96, heart rate 79, respirations 20, O2 sat 97. Her BMI is 38.6. HEENT: Pupils are equal, round, react to light. EOMs are intact. [address] [address] PAIN MANAGEMENT CONSULTATION Name: KELSI TURCIOS Room #: REG CLSukh Grubbs#: [id number] Admission: 11/30/18 Attend Phys: Jose Cruz Golden MD Discharge: Date of : 65 Report #: [id number] membranes are moist. NECK: Supple. EXTREMITIES: Examination of the hands reveals marked tenderness bilaterally involving the trapezium, carpal interaction of the thumb. There is no swelling or inflammation noted. Lapidarist strength is markedly diminished. IMPRESSION: 1. Chronic depression and intractable pain with osteoarthritis involving the hand, particularly the thumb and metacarpal trapezium articulation. 2. History of mixed headache disorder. 3. Polypharmacy including the use of opioid medication, which may be potentiating some of her headache with rebound phenomena. PLAN: I renewed her medication for oxycodone 10/325 one tablet 3 times daily, Voltaren gel for the hands, Topamax for headaches, which she takes 75 mg at bedtime and also gave her 50 Fioricet for 3 months in order to try and abort severe headache. I told her that she should pursue a second opinion for her hands with orthopedic surgeon hand specialist and we reviewed options for her to do so in [place] before discharge. Follow up in 3 months. By: 1640 20 Jose Cruz Golden MD /nt
[2018-11-30 10:31] VITALS: BP 159/96
--- NOTE | 2018-11-30 11:17 | NUR ---
Pain Clinic Assessment: 1. History of Osteoarthritis: Left Lower Extremity History of Rheumatoid Arthritis: NONE 2. Height: 5 ft. 3 in. 160.0 cm. Weight: 217.7 lb. oz. 98.748 kg. Patient's BMI: 38.6 3. Vital Signs: BP: 159/96 Pulse: 79 Resp: 20 Temp: 02 Sat: 97 ECG Mon: 4. Pain Intensity: 6 HEAD, 8 HANDS 5. Fall Risk: Dizziness: Y Needs help standing or walking: N Fallen in the last 3 months: N Fall risk comments: 6. Patient on Blood Thinner: NONE 7. History of Hypertension: Y 8. Opioid Therapy greater than 6 weeks: Y Opiate Contract Signed: 10/09/16 9. Risk Assessment Tool Provided: 5 MODERATE 10. Functional Assessment Tool: 11. Recreational Drug Use: Never Drug Type: Tobacco Use: Former Smoker Tobacco Type: Amount or Packs/day: How Many Years: Alcohol Use: No Frequency: Quant:
== END ==
LOC: PAIN 07:04
DX: M19.042 Primary osteoarthritis, left hand (principal); M19.041 Primary osteoarthritis, right hand; F32.9 Major depressive disorder, single episode, unspecified; G44.221 Chronic tension-type headache, intractable; Z79.891 Long term (current) use of opiate analgesic; Z79.899 Other long term (current) drug therapy

== ENCOUNTER → 2019-02-25 | Outpatient (CLI) | payer BC ==
[~2019-02-25] VITALS: Ht 160 cm; Wt 95.3 kg
[~2019-02-25] MED LIST changes: +BENZONATATE200 MG PO; +VOLTAREN GEL 1100 G2 TOP
[2019-02-25 09:16] VITALS: BP 156/89
--- NOTE | 2019-02-25 09:26 | NUR ---
Pain Clinic Assessment: 1. History of Osteoarthritis: Left Lower Extremity History of Rheumatoid Arthritis: NONE 2. Height: 5 ft. 3 in. 160.0 cm. Weight: 210.0 lb. oz. 95.256 kg. Patient's BMI: 37.2 3. Vital Signs: BP: 156/89 Pulse: 71 Resp: 16 Temp: 02 Sat: 97 ECG Mon: 4. Pain Intensity: 7 5. Fall Risk: Dizziness: Y Needs help standing or walking: N Fallen in the last 3 months: N Fall risk comments: 6. Patient on Blood Thinner: NONE 7. History of Hypertension: Y 8. Opioid Therapy greater than 6 weeks: Y Opiate Contract Signed: 10/09/16 9. Risk Assessment Tool Provided: 5 MODERATE 10. Functional Assessment Tool: 11. Recreational Drug Use: Never Drug Type: Tobacco Use: Former Smoker Tobacco Type: Amount or Packs/day: How Many Years: Alcohol Use: No Frequency: Quant:
--- NOTE | 2019-02-26 07:16 | HPC ---
[facility] [address] [address] [address] PAIN MANAGEMENT CONSULTATION Name: KELSI TURCIOS Room #: REG NICANOR Humera#: [id number] Admission: 02/25/19 ������������������ Attend Phys: Billie Kelly Discharge: ������������������ Date of : 65 Report #: [id number] THIS REPORT FOR: //name// CC: Billie Chen DATE OF SERVICE: 02/25/2019 CHIEF COMPLAINT: Chronic pain and bilateral hand pain. HISTORY OF PRESENT ILLNESS: The patient returns to the pain clinic today for refill of her medications that she uses to take for her chronic hand pain. She has had multiple injections in her hands and recently she tells me that she did go to see Dr. Ruby and had EMG that showed she had cervical radiculopathy and also Dr. Hernandez, her orthopedic doctor, tells her that she has some carpal tunnel affecting her right hand and is thinking about possible surgery. She has not had her follow up with Dr. Hernandez since the EMGs though she is following up with him next week and will know the plan of care after that visit. She has had multiple injections of cortisone in her hands, ones from Dr. Golden and ones from Dr. Hernandez that were very helpful in reducing her pain, but eventually they do wear off. Her medicines are very helpful in controlling her pain in her first metacarpal area. The patient also suffers from chronic headaches and we have been giving her Fioricet and Topamax for these symptoms. The patient finds that these medicines are helpful as well. ALLERGIES: RIBOFLAVIN and CEFTIN. CURRENT MEDICATIONS: Benzonatate 200 mg b.i.d., Topamax 25 mg 3 tablets in the morning, oxycodone 10/325 up to 3 times a day, Fioricet half a tablet to one tablet 3 times a day, Compazine 25 mg rectally p.r.n., MiraLax daily, Cymbalta 60 mg daily, Celebrex 200 mg daily, buspirone 10 mg b.i.d., meclizine 25 mg daily, Xanax 0.25 t.i.d., Advair daily, Lunesta 2 mg at bedtime, verapamil 480 mg at bedtime, Zyrtec 10 mg daily and Prevacid 30 mg b.i.d. PQRS: 1. She has osteoarthritis in her hands and her lower extremities. She denies rheumatoid arthritis. 2. Height is 5 feet 2 inches, weight is 210 and BMI is 36. 3. VITAL SIGNS: Blood pressure 158/89, pulse of 71, respirations 16 and oxygen sat is 97. 4. Pain score 7/10. 5. Fall risk is complaining of dizziness, has not fallen and does not need help with walking. 6. The patient is not on any blood thinners, but she does take medicine for hypertension. 7. Opioid therapy is greater than 6 weeks; therefore, an opioid signed contract [address] [address] PAIN MANAGEMENT CONSULTATION Name: KELSI TURCIOS Chay Room #: REG INCANOR Grubbs#: [id number] Admission: 02/25/19 ������������������ Attend Phys: Billie Kelly Discharge: ������������������ Date of : 65 Report #: [id number] is on the chart. 8. Risk assessment tool is moderate. Her functional assessment is 47/70. 9. Recreational drug use, she denies. She is a former smoker and does not drink alcohol. We did check the prescription monitoring system. The patient is filling appropriately with her narcotics from our physicians. She does have medication also filled listed from her psychiatrist. The patient does have a recent drug screen on the chart that is appropriate. She tells me she does safeguard her medications. PHYSICAL EXAMINATION: GENERAL: This is a pleasant female who is alert and orientated. She appears anxious. No signs of overmedication or somnolence. HEENT: Normocephalic and atraumatic. Extraocular eye muscles are intact. Mucous membranes are moist. EXTREMITIES: She has marked tenderness bilaterally in her hands. She does complain of significant pain over her carpometacarpal area of her right hand. She has some arthritic joints noted in both hands. Lower extremity strength judged to be 5/5 bilaterally in her lower extremities. Upper extremity strength in her upper biceps, triceps is 5/5. Her hand chainstitch hemmer are slightly decreased. No swelling or erythema noted in her hands. IMPRESSION: 1. Intractable pain 2. History of depression. 3. Mixed headache disorder. 4. Chronic pain with multiple pain generators. 5. Osteoarthritis involving knees and hands. We reviewed the fact that opiate medications are being used to provide analgesia adequate to support activities of daily living, not attempting to achieve a specific pain score on the 0-10 Visual Analog Scale. The current opiate medications are providing sufficient analgesia to allow the patient to participate in activities of daily living. The patient is not exhibiting any aberrant behavior suggestive of drug diversion. The patient is not having any adverse reactions to medications. The patient is not suffering from daytime somnolence or mental acuity changes. The patient is managing opiate-induced constipation with appropriate norb-nsv-mhnzmgp agents and dietary considerations. The patient was counseled on concern for caution with operating a motor vehicle while using opiate medications. A physical exam was performed and the patient's functional status was evaluated. All patients with back pain were advised against the bed rest greater than 4 days and were advised to return to normal activities. Pain score assessment was noted and the treatment plan was reviewed with the patient. All current [facility] [address] [place] [address] PAIN MANAGEMENT CONSULTATION Name: KELSI TURCIOS Room #: REG [facility]..#: [id number] Admission: 02/25/19 ������������������ Attend Phys: Billie Kelly Discharge: ������������������ Date of : 65 Report #: [id number] medications, both prescribed and OTC were reviewed and reconciled on the electronic medical record. Tobacco screening was accomplished and smoking cessation was advised when indicated. BMI was noted and diet/exercise modification was recommended for all patients following outside normal parameters. I reviewed with the patient today their responsibilities to safeguard prescription medications, reviewed their responsibility to utilize medications only as prescribed by the physician. They are to seek and receive pain medications only from 1 physician group ( [facility]). They are to use 1 pharmacy and keep the clinic informed if they change pharmacies. Their responsibilities include making followup visits in a timely fashion and to avoid abrupt discontinuation of medication usage. Their responsibilities further include bringing their medications (bottles from the pharmacy with residual pills) to the visit for possible confirmation of pill counts and the patient understands it is their responsibility to submit to random drug screens to ensure both that the medications prescribed are present, and that no other controlled substances are present. All prescriptions provided today were generated electronically. PLAN: 1. We discussed treatment options with the patient today. The patient tells me that she is continuing to work with her orthopedic regarding her painful hands. She has had an EMG and had another cortisone injection, so she has an appointment next week with Dr. Hernandez to determine if she will have carpal tunnel surgery as well as a nodule on her hand removed. She is not sure of the plan of care with that yet. 2. The patient tells me that she has been taking the Topamax 75 mg in the morning as well as her Fioricet about half a tablet as needed with some Tylenol migraine. This has been helpful in reducing her migraines that she continues to have. We will refill her Topamax 25 mg 3 tablets #90 with 2 additional refills. 3. The patient complains of some constipation. She tells me that she uses some FiberCon and occasionally MiraLax. I encouraged her to take MiraLax on a daily basis to see if this reduces some of her constipation issues. The patient does tell me that she has lost 15 pounds, which she is feeling good about and unsure she thinks she may have just changed her diet a little bit and has not been trying to lose more than this at this present time. 4. The patient tells me she has also been using some CBD ointment for her hands as well as the Voltaren gel. She finds both of these very helpful on her hands and her Voltaren gel and has also used on her knee joints. She would like a refill of that today. Script given for Voltaren gel 100 gram tubes, one tube to use 3 times a day with 2 additional refills if she needs to. 5. The patient given refills of her Percocet 10/325 #90 for today, 4-week and 8-week release that is very helpful in helping reduce her pain. 6. The patient was given a script for Compazine 25 mg b.i.d., #15 rectally suppository. She tells me that she used these very sparingly when she has bad [facility] [address] [place] [address] PAIN MANAGEMENT CONSULTATION Name: KELSI TURCIOS Room #: REG NICANOR ChiuJoss#: [id number] Admission: 02/25/19 ������������������ Attend Phys: Billie Kelly Discharge: ������������������ Date of : 65 Report #: [id number] migraines and she just needs to go to bed as well as with her Fioricet. The patient tells me that she has been taking these worst with the weather changes and that brings on her migraine headaches. 7. The patient will follow up in [address] Golden did come and see the patient and collaborated with care today. ��������������������������������������������� <ELECTRONICALLY SIGNED> ���������������������������������������� By: Billie Kelly ��������������������������������������������� 02/26/19 0716 [id number] Billie Kelly /nt
== END ==
LOC: PAIN 06:53
DX: M17.0 Bilateral primary osteoarthritis of knee (principal); M19.042 Primary osteoarthritis, left hand; M19.041 Primary osteoarthritis, right hand; G89.4 Chronic pain syndrome; R51 Headache; Z88.8 Allergy status to other drugs, medicaments and biological substances; Z79.899 Other long term (current) drug therapy; Z86.59 Personal history of other mental and behavioral disorders

== ENCOUNTER → 2019-05-24 | Outpatient (CLI) | payer BC ==
[~2019-05-24] VITALS: Ht 160 cm; Wt 92.1 kg
[2019-05-24 10:31] VITALS: BP 180/102
--- NOTE | 2019-05-24 10:57 | NUR ---
Pain Clinic Assessment: 1. History of Osteoarthritis: Left Lower Extremity thumbs History of Rheumatoid Arthritis: NONE 2. Height: 5 ft. 3 in. 160.0 cm. Weight: 203.0 lb. oz. 92.080 kg. Patient's BMI: 36.0 3. Vital Signs: BP: 180/102 Pulse: 73 Resp: 18 Temp: 02 Sat: 100 ECG Mon: 4. Pain Intensity: 0- right hand, 4-left babcock 5. Fall Risk: Dizziness: Y Needs help standing or walking: N Fallen in the last 3 months: N Fall risk comments: 6. Patient on Blood Thinner: NONE 7. History of Hypertension: Y 8. Opioid Therapy greater than 6 weeks: Y Opiate Contract Signed: 10/09/16 9. Risk Assessment Tool Provided: 5 MODERATE 10. Functional Assessment Tool: 11. Recreational Drug Use: Never Drug Type: Tobacco Use: Former Smoker Tobacco Type: Amount or Packs/day: How Many Years: Alcohol Use: No Frequency: Quant:
--- NOTE | 2019-05-24 15:46 | HPC ---
[facility] [place] [place] [address] PAIN MANAGEMENT CONSULTATION Name: KELSI TURCIOS Room #: REG Sukh Grubbs#: [id number] Admission: 05/24/19 ������������������ Attend Phys: Billie Kelly Discharge: ������������������ Date of : 65 Report #: [id number] THIS REPORT FOR: //name// CC: Billie Chen DATE OF SERVICE: 05/24/2019 CHIEF COMPLAINT: Chronic pain and bilateral hand pain. HISTORY OF PRESENT ILLNESS: This is a 53-year-old female who returns to the pain clinic today for a refill of her medications that she uses to help treat her bilateral hand pain. She recently did have surgery on her right thumb in early April. She is wearing a cast on her right arm. She tells me that pain is 0/10. Her left hand continues to be painful at a 4/10. It feels like a constant pressure. Any weather changes or use of her hand makes her pain increase, but her medications are very helpful. The patient tells me that she did get some pain medicines of Percocet from her orthopedic doctor, who did call us to let us know that they gave her some medications for her initial postoperative period. She tells me that now she is currently weaned down to 2-3 tablets, back to her baseline, from an increase of 8 tablets a day in her initial postoperative period. The patient is not complaining of any constipation currently. She did have some episodes of diarrhea with her MiraLax, and therefore, she had decreased that use. She would like a refill of her medications today. ALLERGIES: CEFTIN AND RIBOFLAVIN. CURRENT MEDICATIONS: Aleve 200 mg 2 tablets 3 times a day, oxycodone 10/325 up to 3 times a day, Fioricet 3 times a day, Topamax 3 tablets at bedtime, Compazine p.r.n., benzonatate 200 mg b.i.d., Cymbalta 60 mg daily, buspirone 10 mg b.i.d., meclizine 25 mg daily p.r.n., Xanax 0.25 mg 3 times a day, Advair, Lunesta, verapamil 240 mg at bedtime, Zyrtec and Prevacid b.i.d. PQRS REVIEW: 1. She has osteoarthritis in her hands and her lower extremities. Denies any rheumatoid arthritis. 2. Height is 5 feet 3 inches, weight is 203 and BMI is 36. 3. Vital signs, 180/102, pulse is 73, respirations 18 and oxygen sat is 100. Blood pressure retaken manually and it was 192/80. 4. Pain score zero in her right hand and 4/10 in her left hand. 5. Complains of some dizziness. Does not need help walking or standing, has not fallen in the last 3 months. 6. The patient is not on any blood thinners, but does take medicine for hypertension. [address] [address] PAIN MANAGEMENT CONSULTATION Name: KELSI TURCIOS Chay Room #: REG NICANOR Grubbs#: [id number] Admission: 05/24/19 ������������������ Attend Phys: Billie Kelly Discharge: ������������������ Date of : 65 Report #: [id number] 7. Opioid therapy is greater than 6 weeks; therefore, an opioid signed contract is on the chart. Her risk assessment is moderate. Her functional assessment is 47/70. 8. Recreational drug use, she denies. She is a former smoker and does not drink alcohol. We did check the prescription monitoring system. The patient did fill several prescriptions from her surgeon; otherwise, filling appropriately from our physician. We will check a urine drug screen on her next visit. She tells me she does safeguard her medications. PHYSICAL EXAMINATION: GENERAL: This is a pleasant female who is alert and orientated, appears her stated age of 53. No signs of overmedication or somnolence. Very talkative and anxious appearing. HEENT: Normocephalic, atraumatic. Extraocular eye muscles are intact. Mucous membranes are moist. EXTREMITIES: Marked tenderness in her hands. She does have a cast on her right hand that extends to her elbow. She has some arthritic joints noted in her left hand. Her lower extremity strength judged to be 5/5 bilaterally and her upper extremity strength in her biceps and triceps is 5/5. She has no swelling or erythema noted in her hands. The patient does have a scar noted from a recent IV that infiltrated in her left hand that was noted. IMPRESSION: 1. Intractable pain. 2. History of depression. 3. Mixed headache disorder. 4. Chronic pain with multiple pain generators. 5. Osteoarthritis involving her knees and her hands. We reviewed the fact that opiate medications are being used to provide analgesia adequate to support activities of daily living, not attempting to achieve a specific pain score on the 0-10 Visual Analog Scale. The current opiate medications are providing sufficient analgesia to allow the patient to participate in activities of daily living. The patient is not exhibiting any aberrant behavior suggestive of drug diversion. The patient is not having any adverse reactions to medications. The patient is not suffering from daytime somnolence or mental acuity changes. The patient is managing opiate-induced constipation with appropriate asgx-yuu-zffvwmp agents and dietary considerations. The patient was counseled on concern for caution with operating a motor vehicle while using opiate medications. A physical exam was performed and the patient's functional status was evaluated. All patients with back pain were advised against the bed rest greater than 4 days and were advised to return to normal activities. Pain score assessment was [facility] [address] [place] [address] PAIN MANAGEMENT CONSULTATION Name: KELSI TURCIOS [facility] [id number] Admission: 05/24/19 ������������������ Attend Phys: Billie Kelly Discharge: ������������������ Date of : 65 Report #: [id number] noted and the treatment plan was reviewed with the patient. All current medications, both prescribed and OTC were reviewed and reconciled on the electronic medical record. Tobacco screening was accomplished and smoking cessation was advised when indicated. BMI was noted and diet/exercise modification was recommended for all patients following outside normal parameters. I reviewed with the patient today their responsibilities to safeguard prescription medications, reviewed their responsibility to utilize medications only as prescribed by the physician. They are to seek and receive pain medications only from 1 physician group ( [facility]). They are to use 1 pharmacy and keep the clinic informed if they change pharmacies. Their responsibilities include making followup visits in a timely fashion and to avoid abrupt discontinuation of medication usage. Their responsibilities further include bringing their medications (bottles from the pharmacy with residual pills) to the visit for possible confirmation of pill counts and the patient understands it is their responsibility to submit to random drug screens to ensure both that the medications prescribed are present, and that no other controlled substances are present. All prescriptions provided today were generated electronically. PLAN: 1. We discussed treatment options with the patient today. The patient feels like she is back to her baseline as far as her pain control, taking 2-3 tablets of her oxycodone, which is significantly decreased from her initial postoperative period of 8 tablets a day. Prescriptions given today for oxycodone 10/325, #90 for today, 4 week, an 8-week release. 2. The patient tells us that she has been taking two Aleve 3 times a day. We explained to her that is too much nonsteroidal anti-inflammatories. The patient had taken Celebrex in the past. I encouraged her to go back to her primary and get a prescription for that again and to decrease her Aleve in the meantime to 2 tablets max a day. The patient tells me that she had noticed some rectal bleeding, though she had been constipated initially after her surgery; she is unsure if it is related to that. Again, I encouraged her to see her primary care doctor and decrease her nonsteroidal use. 3. The patient will return in 3 months' time period. Prescriptions also given today for her Fioricet and Topamax. Refills for 3 months. 4. The patient is seen today under the collaborative care of Dr. Omar Ray, who discussed this case with Dr. Jose Cruz Golden and Dr. Ray is covering for him this week. ��������������������������������������������� <ELECTRONICALLY SIGNED> ���������������������������������������� By: Billie Kelly ��������������������������������������������� 05/24/19 1546 [id number] Billie Kelly /nt
== END ==
LOC: PAIN 09:46
DX: M17.0 Bilateral primary osteoarthritis of knee (principal); G89.4 Chronic pain syndrome; M19.042 Primary osteoarthritis, left hand; M19.041 Primary osteoarthritis, right hand; R51 Headache; F32.9 Major depressive disorder, single episode, unspecified; Z79.899 Other long term (current) drug therapy

== ENCOUNTER → 2019-08-12 | Outpatient (CLI) | payer BC ==
[~2019-08-12] VITALS: Ht 160 cm; Wt 94.7 kg
[2019-08-12 08:54] VITALS: BP 150/84
--- NOTE | 2019-08-12 09:02 | NUR ---
Pain Clinic Assessment: 1. History of Osteoarthritis: Left Lower Extremity thumbs History of Rheumatoid Arthritis: NONE 2. Height: 5 ft. 3 in. 160.0 cm. Weight: 208.8 lb. oz. 94.711 kg. Patient's BMI: 37.0 3. Vital Signs: BP: 150/84 Pulse: 69 Resp: 14 Temp: 02 Sat: 100 ECG Mon: 4. Pain Intensity: 4- right hand, 3 HEADACHE 5. Fall Risk: Dizziness: N Needs help standing or walking: N Fallen in the last 3 months: N Fall risk comments: 6. Patient on Blood Thinner: NONE 7. History of Hypertension: Y 8. Opioid Therapy greater than 6 weeks: Y Opiate Contract Signed: 10/09/16 9. Risk Assessment Tool Provided: 5 MODERATE 10. Functional Assessment Tool: 11. Recreational Drug Use: Never Drug Type: Tobacco Use: Former Smoker Tobacco Type: Amount or Packs/day: How Many Years: Alcohol Use: No Frequency: Quant:
--- NOTE | 2019-08-17 09:12 | HPC ---
[facility] [place] [address] PAIN MANAGEMENT CONSULTATION Name: KELSI TURCIOS Room #: REG [facility] Humera#: [id number] Admission: 08/12/19 Attend Phys: Billie Kelly Discharge: Date of : 65 Report #: [id number] THIS REPORT FOR: //name// CC: Billie Chen DATE OF SERVICE: 08/12/2019 CHIEF COMPLAINT: Chronic pain and bilateral hand pain. HISTORY OF PRESENT ILLNESS: This is a 53-year-old female who returns to the pain clinic today for a refill of her medications. She tells me she has recently had a flare in her right hand while carrying something. She tells me that she hurt a tendon in her hand. She did see her surgeon, who stopped her physical therapy for 10 days. She is about to start that again. She feels that has slowly relieved some of her pain by stopping all exercises. She is hopeful to continue her progress that she has been making. She is also planning on having surgery on her left hand in October. She is rating her pain score 4/10 today in her hand and a 3 out of 10 in her head from her ongoing chronic headaches. She feels that the weather changes have increased her headaches, but still is happy to report that she had some Fioricet left over this month. She reports a constant pressure, aching, soreness for pain characteristics worse with using her hand and weather changes as stated above, but medications have been very helpful. ALLERGIES: RIBOFLAVIN and CEFTIN. CURRENT LIST OF MEDICATIONS: Oxycodone 10/325 three times a day p.r.n., Fioricet p.r.n., Topamax 75 mg at bedtime, Aleve p.r.n., Compazine p.r.n., Voltaren gel as needed, benzonatate 200 mg b.i.d., MiraLax daily, Cymbalta 90 mg daily, meclizine p.r.n., alprazolam 0.25 mg t.i.d., Advair, Lunesta, verapamil 240 mg, Zyrtec and Prevacid 30 mg b.i.d. PQRS: 1. She has osteoarthritis in her bilateral hands and lower extremities. She denies any rheumatoid arthritis. 2. Height is 5 feet 3 inches, weight is 208, BMI is 37. 3. Vital signs 150/84, pulse is 69, respirations 14, oxygen sat is 100. 4. Pain score 4/10 in her hands, 3/10 for her headaches. 5. The patient denies dizziness, does not need help walking or standing, has not fallen in the last 3 months. 6. The patient is not on any blood thinners, but does take medicine for hypertension. 7. Opiate therapy is greater than 6 weeks; therefore, an opiate signed contract is on the chart. Her risk assessment is moderate. Her functional assessment is 47/70. [address] [address] PAIN MANAGEMENT CONSULTATION Name: KELSI TURCIOS Room #: JAE Grubbs#: [id number] Admission: 08/12/19 Attend Phys: Billie Kelly Discharge: Date of : 65 Report #: [id number] 8. She denies any recreational drug use. She is a former smoker and does occasionally drink alcohol. According to the prescription monitoring system, the patient is due to fill her medicine early next week. We will check a random drug screen on this patient today. Her last medication doses were yesterday. PHYSICAL EXAMINATION: GENERAL: This is a pleasant and alert 53-year-old no signs of overmedication or somnolence, rating her pain score from 3 to 4 today. HEENT: Normocephalic, atraumatic. Extraocular muscles are intact. Mucous membranes are moist. EXTREMITIES: She has tenderness in her bilateral hands. Well-healed scar in her right wrist area. She does have tenderness along her right thumb today. She has arthritic joints noted in her left hand. Her lower extremity strength judged to be 5/5 bilaterally and upper extremity strength judged to be 5/5 bilaterally. No swelling or erythema noted. The patient does complain of some right ankle pain as well today. IMPRESSION: 1. Intractable pain. 2. History of depression. 3. Mixed headache disorder. 4. Chronic pain with multiple pain generators. 5. Osteoarthritis involving her knees, hands and ankles. We reviewed the fact that opiate medications are being used to provide analgesia adequate to support activities of daily living, not attempting to achieve a specific pain score on the 0-10 Visual Analog Scale. The current opiate medications are providing sufficient analgesia to allow the patient to participate in activities of daily living. The patient is not exhibiting any aberrant behavior suggestive of drug diversion. The patient is not having any adverse reactions to medications. The patient is not suffering from daytime somnolence or mental acuity changes. The patient is managing opiate-induced constipation with appropriate ifmc-foo-zctibnx agents and dietary considerations. The patient was counseled on concern for caution with operating a motor vehicle while using opiate medications. A physical exam was performed and the patient's functional status was evaluated. All patients with back pain were advised against the bed rest greater than 4 days and were advised to return to normal activities. Pain score assessment was noted and the treatment plan was reviewed with the patient. All current medications, both prescribed and OTC were reviewed and reconciled on the electronic medical record. Tobacco screening was accomplished and smoking cessation was advised when indicated. BMI was noted and diet/exercise modification was recommended for all patients following outside normal [facility] [address] [place] [address] PAIN MANAGEMENT CONSULTATION Name: KELSI TURCIOS Room #: REG [facility].#: [id number] Admission: 08/12/19 Attend Phys: Billie Kelly Discharge: Date of : 65 Report #: [id number] parameters. I reviewed with the patient today their responsibilities to safeguard prescription medications, reviewed their responsibility to utilize medications only as prescribed by the physician. They are to seek and receive pain medications only from 1 physician group ( [facility]). They are to use 1 pharmacy and keep the clinic informed if they change pharmacies. Their responsibilities include making followup visits in a timely fashion and to avoid abrupt discontinuation of medication usage. Their responsibilities further include bringing their medications (bottles from the pharmacy with residual pills) to the visit for possible confirmation of pill counts and the patient understands it is their responsibility to submit to random drug screens to ensure both that the medications prescribed are present, and that no other controlled substances are present. All prescriptions provided today were generated electronically. PLAN: 1. We discussed treatment options with the patient today. The patient reports that her psychiatrist recently took her off her BuSpar and increased her Cymbalta to 90 mg. She is hopeful that this will help some of her generalized aches and pains. It was a recent change, so she has not noticed any difference as of today. 2. She had a flare in her right hand. She has stopped her physical therapy and hopeful to restart and then possibly have surgery in Octoberon her left hand. 3. The patient feels that the medications are very beneficial. She is taking them on an as needed basis and continues to try and decrease if she is able. She did bring her pill bottles with her today and does have medicines left over. Scripts given for oxycodone 10/325, #90, for today, 4-week and 8-week release and Fioricet 3 times a day with 2 additional refills, #50 tablets. 4. Diclofenac gel was refilled. The patient finds this very beneficial for her osteoarthritis for 2 tubes with 2 additional refills and Topamax 25 mg, #90; the patient takes 3 at bedtime, with 2 additional refills. 5. The patient did give us a urine specimen for a random drug screen. 6.The patient will return in 3 months for an appointment. Care was given today in collaboration with Dr. Jose Cruz Golden by phone today, and we did sit and reviewed the chart prior to this visit. Dr Omar Ray also collaborative care today. <ELECTRONICALLY SIGNED> By: Billie Kelly 08/17/19 0912 [id number] Billie Kelly /nt
== END ==
LOC: PAIN 07:02
DX: M17.0 Bilateral primary osteoarthritis of knee (principal); G89.4 Chronic pain syndrome; F32.9 Major depressive disorder, single episode, unspecified; Z88.8 Allergy status to other drugs, medicaments and biological substances; Z79.899 Other long term (current) drug therapy

== ENCOUNTER → 2019-11-04 | Outpatient (CLI) | payer BC ==
[~2019-11-04] VITALS: Ht 160 cm; Wt 97.0 kg
[~2019-11-04] MED LIST changes: +LINZESS72 MCG PO; +VOLTAREN GEL 1100 G1 TOP
--- NOTE | ~2019-11-04 | HPC ---
[facility] [place] [address] PAIN MANAGEMENT CONSULTATION Name: KELSI TURCIOS [id number] Admission: 11/04/19 Attend Phys: Billie Kelly Discharge: Date of : 65 Report #: [id number] THIS REPORT FOR: //name// CC: Billie Chen DATE OF SERVICE: 11/04/2019 CHIEF COMPLAINT: Chronic hand pain. HISTORY OF PRESENT ILLNESS: This is a 53-year-old female who returns to the pain clinic today for refill of her medications that she uses to help treat her ongoing bilateral hand pain. She does suffer from migraines as well and does get medications for those from Dr. Jose Cruz Golden as well. Today, she is suffering from a head cold. She has had this for a week. She is not taking any antibiotics. She feels that she has pressure in her head and ringing in her ears and complaining of being tired. She has not seen her primary doctor regarding this viral infection. The patient is reporting a pain score of 2/10 today. She does report an increase in that pain as the day progresses when she is more active. She also has increased pain if she is not sleeping adequately. She feels all of her medications are beneficial. She has brought those prescription bottles with her today and she does have several pills left of her Fioricet as well as her oxycodone despite being due for those medications now. ALLERGIES: RIBOFLAVIN and CEFTIN. CURRENT LIST OF MEDICATIONS: Linzess, Celebrex, Voltaren gel, Topamax, oxycodone 10/325 t.i.d., Fioricet p.r.n., benzonatate, MiraLax, duloxetine, buspirone, meclizine, alprazolam, Advair, Lunesta, verapamil, Zyrtec and Prevacid. PATIENT'S PQRS: 1. She has osteoarthritis in her bilateral hands as well as her lower extremities. She denies any rheumatoid arthritis. 2. Height is 5 feet 3 inches, weight is 213, BMI is 37. 3. Vital signs 152/96, pulse is 72, respirations 18, oxygen sat is now 100. 4. Pain score is 2/10 currently as high as 7-8 in the evening. 5. Complains of slight dizziness due to her sinus issues. She has not fallen in the last 3 months and does not need assistance with walking. 6. The patient is not on any blood thinners, but does take medicine for hypertension. 7. Opioid therapy is greater than 6 weeks; therefore, [place] [address] PAIN MANAGEMENT CONSULTATION Name: YFNKELSI Room #: REG [facility] Grubbs#: [id number] Admission: 11/04/19 Attend Phys: Billie Kelly Discharge: Date of : 65 Report #: [id number] is on the chart. Risk assessment is moderate. Functional assessment is 47/70. 8. Recreational drug use, she denies. She is a former smoker and does not drink alcohol. According to the prescription monitoring system, the patient is due to fill her medications. She is filling them in a timely fashion from Dr. Jose Cruz Golden with no aberrant fills. There is a recent drug screen on the chart that is appropriate as well. According to the CDC guidelines, her morphine mEq per day is 50. PHYSICAL EXAMINATION: GENERAL: This is alert and orientated 53-year-old who appears her stated age with no signs of overmedication or somnolence, rating her pain score at 2/10 today. HEENT: Normocephalic, atraumatic. Extraocular eye muscles are intact. She has redness around her nose from a recent viral infection and complains of tinnitus in her left ear. Mucous membranes are moist. EXTREMITIES: Tenderness in her bilateral hands, right greater than the left. She has a well-healed scar from recent surgery on her right wrist with arthritic nodules on her left hand. Complains also of right ankle tenderness. No edema noted. Her upper extremity strength judged to be 5/5 in all major muscle groups. IMPRESSION: 1. Intractable pain. 2. History of depression. 3. Headache disorder. 4. Chronic pain with multiple pain generators. 5. Osteoarthritis involving her knees, hands and ankles. 6. Complex medical management under terms of written opioid agreement. We reviewed the fact that opiate medications are being used to provide analgesia adequate to support activities of daily living, not attempting to achieve a specific pain score on the 0-10 Visual Analog Scale. The current opiate medications are providing sufficient analgesia to allow the patient to participate in activities of daily living. The patient is not exhibiting any aberrant behavior suggestive of drug diversion. The patient is not having any adverse reactions to medications. The patient is not suffering from daytime somnolence or mental acuity changes. The patient is managing opiate-induced constipation with appropriate nsmv-vju-xxzoifa agents and dietary considerations. The patient was counseled on concern for caution with operating a motor vehicle while using opiate medications. PLAN: 1. We discussed treatment options with the patient today. The patient finds her medications beneficial taking oxycodone half to one tablet up to [address] [address] PAIN MANAGEMENT CONSULTATION Name: KELSI TURCIOS Room #: REG [facility]#: [id number] Admission: 11/04/19 Attend Phys: Billie Kelly Discharge: Date of : 65 Report #: [id number] day. She does take these sparingly, some days she only requires 2 tablets and does have 8 pills left in her bottle that she has brought with her today. We will electronically have Dr. Golden send her oxycodone 10/325, #90 scripts to her pharmacy for today for an 8-week release as well as her Fioricet, #50 with 2 additional refills. 2. I will refill her diclofenac gel with 2 additional refills. The patient finds this very beneficial in helping her arthritic joints using it on her hands, knees and ankles. 3. Topamax 25 mg 3 at bedtime, #90 with 2 additional refills was also sent electronically for her mixed headache disorder. 4. The patient denies any problems with constipation or daytime somnolence as a result of all of her medications. She is doing quite well except for her viral infection. We encouraged the patient if it continues to be bothersome to contact her primary care office. The patient is seen today in collaboration with Dr. Jose Cruz Golden. By: [id number] Billie Kelly /dago
[2019-11-04 11:23] VITALS: BP 152/96
--- NOTE | 2019-11-04 11:41 | NUR ---
Pain Clinic Assessment: 1. History of Osteoarthritis: Left Lower Extremity thumbs History of Rheumatoid Arthritis: NONE 2. Height: 5 ft. 3 in. 160.0 cm. Weight: 213.8 lb. oz. 96.979 kg. Patient's BMI: 37.9 3. Vital Signs: BP: 152/96 Pulse: 72 Resp: 18 Temp: 02 Sat: 100 ECG Mon: 4. Pain Intensity: 2-NOW, 7-8 BY EVENING 5. Fall Risk: Dizziness: Y Needs help standing or walking: N Fallen in the last 3 months: N Fall risk comments: 6. Patient on Blood Thinner: NONE 7. History of Hypertension: Y 8. Opioid Therapy greater than 6 weeks: Y Opiate Contract Signed: 10/09/16 9. Risk Assessment Tool Provided: 5 MODERATE 10. Functional Assessment Tool: 11. Recreational Drug Use: Never Drug Type: Tobacco Use: Former Smoker Tobacco Type: Amount or Packs/day: How Many Years: Alcohol Use: No Frequency: Quant:
== END ==
LOC: PAIN 07:02
DX: G89.4 Chronic pain syndrome (principal); F32.9 Major depressive disorder, single episode, unspecified; M17.0 Bilateral primary osteoarthritis of knee; M19.042 Primary osteoarthritis, left hand; M19.041 Primary osteoarthritis, right hand

== ENCOUNTER 2020-01-21 13:59 | Emergency (ER) | payer BC ==
[~2020-01-21] VITALS: Ht 160 cm; Wt 83.9 kg
[2020-01-21 17:36] VITALS: BP 139/79
[2020-01-27] MEDS ORDERED: VOLTAREN100 GM TOP (10:42)
[2020-01-27] MEDS ORDERED: TOPAMAX 25 MG T25 MG PO (10:42)
[2020-01-27] MEDS ORDERED: OXYCODONE-ACET1 EAC2 PO ×2 (10:45)
[2020-01-27] MEDS ORDERED: BUTALB-APAP-CA1 EACH PO (10:45)
== END 2020-01-21 17:38 | disposition home or self-care (01) ==
LOC: ER 13:59
DX: G43.009 Migraine without aura, not intractable, without status migrainosus (principal); R42 Dizziness and giddiness; M19.90 Unspecified osteoarthritis, unspecified site; I10 Essential (primary) hypertension; F17.210 Nicotine dependence, cigarettes, uncomplicated; Z88.1 Allergy status to other antibiotic agents; Z88.8 Allergy status to other drugs, medicaments and biological substances; Z96.652 Presence of left artificial knee joint; Z90.89 Acquired absence of other organs; Z86.2 Personal history of diseases of the blood and blood-forming organs and certain disorders involving the immune mechanism

== ENCOUNTER → 2020-01-27 | Outpatient (CLI) | payer BC ==
[~2020-01-27] VITALS: Ht 160 cm; Wt 94.8 kg
[~2020-01-27] MED LIST changes: +VOLTAREN100 GM TOP
[2020-01-27 09:52] VITALS: BP 142/78
--- NOTE | 2020-01-27 10:04 | NUR ---
Pain Clinic Assessment: 1. History of Osteoarthritis: Left Lower Extremity thumbs History of Rheumatoid Arthritis: NONE 2. Height: 5 ft. 3 in. 160.0 cm. Weight: 209.0 lb. oz. 94.802 kg. Patient's BMI: 37.0 3. Vital Signs: BP: 142/78 Pulse: 73 Resp: 16 Temp: 02 Sat: 100 ECG Mon: 4. Pain Intensity: 1 5. Fall Risk: Dizziness: N Needs help standing or walking: N Fallen in the last 3 months: N Fall risk comments: 6. Patient on Blood Thinner: NONE 7. History of Hypertension: Y 8. Opioid Therapy greater than 6 weeks: Y Opiate Contract Signed: 10/09/16 9. Risk Assessment Tool Provided: 5 MODERATE 10. Functional Assessment Tool: 11. Recreational Drug Use: Never Drug Type: Tobacco Use: Current Some Day Smoker Tobacco Type: E-Cigarettes Amount or Packs/day: How Many Years: Alcohol Use: No Frequency: Quant:
--- NOTE | 2020-01-27 15:05 | HPC ---
[facility] [place] [address] PAIN MANAGEMENT CONSULTATION Name: KELSI TURCIOS Room #: REG [facility]#: [id number] Admission: 01/27/20 Attend Phys: Billie Kelly Discharge: Date of : 65 Report #: [id number] THIS REPORT FOR: cc: Ronn Chen MD,Ronn Kelly,Billie MCNEIL ~ CC: Billie Chen DATE OF SERVICE: 01/27/2020 CHIEF COMPLAINT: Chronic hand pain and migraine headaches. HISTORY OF PRESENT ILLNESS: This is a pleasant 54-year-old female who returns to the pain clinic today for refill of her medications that she uses to help treat her ongoing hand pain. She also suffers from migraines. The patient reports that she had a significant migraine last week starting on Friday with vertigo and an aura that progressed to a significant headache across the temporal part of her head. She did go to the [facility] on Friday and was given a dose of Toradol. She believes that was beneficial in breaking the cycle as well as lying down in a dark environment. She reports by Friday, she was feeling better and today complains of pain of only a 1/10. Again, her pain generators are in her bilateral hands and her head. It is a pressure, aching feeling, worse with stress, but the medication and lying down is beneficial. The patient reports that she recently bought a new puppy, Ba retriever that is causing significant stress in her life, having to train him and lift him. She feels that this was part of her triggers for her migraine from last week. ALLERGIES: RIBOFLAVIN and CEFTIN. MEDICATIONS: Oxycodone 10/325 p.r.n., Fioricet, Voltaren gel, Topamax, Linzess, Celebrex, Compazine, MiraLax, Cymbalta, buspirone, meclizine, allopurinol, Advair, Lunesta, verapamil, Zyrtec and Prevacid. PQRS: 1. She has arthritic changes in her bilateral hands as well as her lower extremities. Denies any rheumatoid arthritis. 2. Height is 5 feet 3 inches, weight is 209, BMI is 37. 3. Vital signs, blood pressure 142/78, pulse is 73, respirations 16, oxygen sat is 100, pain score 1/10. 4. Fall risk. Denies dizziness, does not need help walking or standing, has not fallen in the last 3 months. The patient is not on any blood thinners, but does take medicine for hypertension. Her opioid therapy is greater than 6 weeks; therefore, an opioid signed contract is on the chart. Risk assessment is [address] [address] PAIN MANAGEMENT CONSULTATION Name: KELSI TURCIOS Room #: REG [facility] Humera#: [id number] Admission: 01/27/20 Attend Phys: Billie Kelly Discharge: Date of : 65 Report #: [id number] moderate. Functional assessment is 42/70. 5. Recreational drug use, she denies. She is a current e-cigarette smoker, occasionally and does not drink alcohol. According to the prescription monitoring system, the patient is filling appropriately for her medications. She is filling them in a timely fashion and is due to fill those today. She has brought her pill bottles with her and she does have 2 days left of Percocet and several pills left of her Fioricet. There is a drug screen on the chart that is appropriate as well. PHYSICAL EXAMINATION: GENERAL: This is alert and orientated, very upbeat 54-year-old, placing her current pain score at 1/10. She is a good historian. HEENT: Normocephalic, atraumatic. Extraocular eye muscles are intact. Mucous membranes are moist. EXTREMITIES: She has tenderness in her bilateral hands, most significantly her thumb on her right hand. She has a large area of ecchymosis from IV start in her left lateral elbow various stages of healing. She has no edema in her lower extremities. Her upper extremity strength judged to be 5/5 in all major muscle groups. IMPRESSION: 1. Intractable pain. 2. History of depression. 3. Headache disorder. 4. Osteoarthritis involving hands, knees and ankles. 5. Chronic pain with multiple pain generators. 6. Complex medical management under terms of written opioid agreement. We reviewed the fact that opiate medications are being used to provide analgesia adequate to support activities of daily living, not attempting to achieve a specific pain score on the 0-10 Visual Analog Scale. The current opiate medications are providing sufficient analgesia to allow the patient to participate in activities of daily living. The patient is not exhibiting any aberrant behavior suggestive of drug diversion. The patient is not having any adverse reactions to medications. The patient is not suffering from daytime somnolence or mental acuity changes. The patient is managing opiate-induced constipation with appropriate gvoa-pdg-cuihjar agents and dietary considerations. The patient was counseled on concern for caution with operating a motor vehicle while using opiate medications. A physical exam was performed and the patient's functional status was evaluated. All patients with back pain were advised against the bed rest greater than 4 days and were advised to return to normal activities. Pain score assessment was noted and the treatment plan was reviewed with the patient. All current medications, both prescribed and OTC were reviewed and reconciled on the [facility] [address] [place] [address] PAIN MANAGEMENT CONSULTATION Name: KELSI TURCIOS Room #: REG [facility].#: [id number] Admission: 01/27/20 Attend Phys: Billie Kelly Discharge: Date of : 65 Report #: [id number] electronic medical record. Tobacco screening was accomplished and smoking cessation was advised when indicated. BMI was noted and diet/exercise modification was recommended for all patients following outside normal parameters. I reviewed with the patient today their responsibilities to safeguard prescription medications, reviewed their responsibility to utilize medications only as prescribed by the physician. They are to seek and receive pain medications only from 1 physician group ( [facility]). They are to use 1 pharmacy and keep the clinic informed if they change pharmacies. Their responsibilities include making followup visits in a timely fashion and to avoid abrupt discontinuation of medication usage. Their responsibilities further include bringing their medications (bottles from the pharmacy with residual pills) to the visit for possible confirmation of pill counts and the patient understands it is their responsibility to submit to random drug screens to ensure both that the medications prescribed are present, and that no other controlled substances are present. All prescriptions provided today were generated electronically. PLAN: 1. We discussed treatment options with the patient today. The patient finds her medication has been beneficial. She reports she recently started CBD gel caps that she has been ordering online. We discussed that she should not have THC in these medicines and she should have a printout of the ingredients and specs from each medicine and she tells me that the company does send that with all of her prescriptions via mail. She has also been using some CBD paste on her hands and has found this beneficial. Again, we discussed no THC, only CBD with her opioids. The patient verbalizes understanding. 2. We will electronically send her Voltaren gel. She finds this beneficial for her hands as well. Topamax 75 mg at bedtime, quantity 90 with 2 additional refills will be sent electronically. Dr. Jose Cruz Golden collaborated care and did send her oxycodone 10/325, #90 for 3 months as well as her Fioricet, #50 with 2 refills to the pharmacy. 3. The patient will return in 3 months as needed for medication management. <ELECTRONICALLY SIGNED> By: Billie Kelly 01/27/20 1505 [id number] Billie Kelly /nt
== END ==
LOC: PAIN 06:55
DX: G89.4 Chronic pain syndrome (principal); G43.909 Migraine, unspecified, not intractable, without status migrainosus; F32.9 Major depressive disorder, single episode, unspecified; M17.0 Bilateral primary osteoarthritis of knee; M19.072 Primary osteoarthritis, left ankle and foot; M19.071 Primary osteoarthritis, right ankle and foot; Z79.891 Long term (current) use of opiate analgesic

== ENCOUNTER → 2020-04-20 | Outpatient (CLI) | payer BC ==
[~2020-04-20] VITALS: Ht 160 cm; Wt 97.3 kg
[2020-04-20 09:31] VITALS: BP 148/85
--- NOTE | 2020-04-20 09:35 | NUR ---
Pain Clinic Assessment: 1. History of Osteoarthritis: Left Lower Extremity thumbs History of Rheumatoid Arthritis: NONE 2. Height: 5 ft. 3 in. 160.0 cm. Weight: 214.4 lb. oz. 97.251 kg. Patient's BMI: 38.0 3. Vital Signs: BP: 148/85 Pulse: 72 Resp: 16 Temp: 02 Sat: ECG Mon: 4. Pain Intensity: 1/head 5. Fall Risk: Dizziness: N Needs help standing or walking: N Fallen in the last 3 months: N Fall risk comments: 6. Patient on Blood Thinner: NONE 7. History of Hypertension: Y 8. Opioid Therapy greater than 6 weeks: Y Opiate Contract Signed: 10/09/16 9. Risk Assessment Tool Provided: 5 MODERATE 10. Functional Assessment Tool: 11. Recreational Drug Use: Never Drug Type: Tobacco Use: Current Some Day Smoker Tobacco Type: Cigarettes Amount or Packs/day: How Many Years: Alcohol Use: No Frequency: Quant:
--- NOTE | 2020-04-20 16:32 | HPC ---
[facility] [address] [place] [address] PAIN MANAGEMENT CONSULTATION Name: KELSI TURCIOS Room #: REG [facility].#: [id number] Admission: 04/20/20 Attend Phys: Billie Kelly Discharge: Date of : 65 Report #: [id number] THIS REPORT FOR: cc: Ronn Chen MD, Stanley P. MD Hocker,Billie MCNEIL ~ CC: Jose Cruz Golden MD DATE OF SERVICE: 04/20/2020 CHIEF COMPLAINT: Chronic hand pain and migraine headaches. HISTORY OF PRESENT ILLNESS: This is a 54-year-old female who is well known to our pain clinic. She returns today for refill of her medications that she uses to help treat her ongoing migraines as well as her ongoing hand pain. She states today that her left thumb and hand have been very problematic. She has a new puppy and has been needing to walk him plus a recent injection in her hand caused some increased pain. She continues to use her Voltaren gel quite frequently throughout the day on her hand and feels that is beneficial. She states currently her migraine headaches are doing well and are under controlled with her current regimen, rating the pain score of 1-10 today. She states weather and stress do increase her pain. Today, she is requesting refills of her opioid medications. ALLERGIES: RIBOFLAVIN AND CEFTIN. CURRENT LIST OF MEDICATIONS: Oxycodone 10/325 p.r.n., Fioricet, Topamax, Voltaren, Celebrex, Compazine, benzonatate, MiraLax, Cymbalta 60 mg, buspirone, meclizine, alprazolam, Advair, Lunesta, verapamil, Zyrtec and Prevacid. PQRS: 1. She has arthritic changes in her hands and lower extremities. Denies any rheumatoid arthritis. 2. Height is 5 feet 3 inches, weight is 214, BMI is 38. 3. Vital signs 148/85, pulse is 72, respirations 16, oxygen sat is 100. 4. Pain score is 1/10. 5. Denies dizziness, does not need help walking or standing, has not fallen in the last 3 months. 6. The patient is not on any blood thinners, but does take medicine for hypertension. 7. Opioid therapy is greater than 6 weeks; therefore, an opioid signed contract is on the chart. Risk assessment is moderate. Functional assessment is 47/70. 8. Recreational drug use, she denies. She does smoke tobacco occasionally. Does not drink alcohol. According to the prescription monitoring system, the patient is due to fill her [address] [address] PAIN MANAGEMENT CONSULTATION Name: KELSI TURCIOS Room #: REG [facility] Humera#: [id number] Admission: 04/20/20 Attend Phys: Billie Kelly Discharge: Date of : 65 Report #: [id number] medications this week. She did bring her bottle, which shows 3 pills remaining. The patient states she has 3 more at home for today. Her morphine mEq is 45 MME. PHYSICAL EXAMINATION: GENERAL: This is alert and orientated, well-developed, well-nourished, well-hydrated 54-year-old female who appears her stated age, placing her current pain score 1/10. She is a good historian. HEENT: Normocephalic, atraumatic. Extraocular eye muscles are intact. She is wearing a mask. EXTREMITIES: She has tenderness in her hand today, most centrally located in her left thumb. MUSCULOSKELETAL: Upper extremity strength judged to be 5/5 in all major muscle groups. She does have tenderness in her bilateral ankles as well. Denies headache presently. IMPRESSION: 1. Intractable pain. 2. History of depression. 3. Headache disorder. 4. Osteoarthritis involving her hands, knees and ankles. 5. Chronic pain with multiple pain generators. 6. Complex medical management under terms of written opioid agreement. We reviewed the fact that opiate medications are being used to provide analgesia adequate to support activities of daily living, not attempting to achieve a specific pain score on the 0-10 Visual Analog Scale. The current opiate medications are providing sufficient analgesia to allow the patient to participate in activities of daily living. The patient is not exhibiting any aberrant behavior suggestive of drug diversion. The patient is not having any adverse reactions to medications. The patient is not suffering from daytime somnolence or mental acuity changes. The patient is managing opiate-induced constipation with appropriate qmxp-rmr-iclwnrn agents and dietary considerations. The patient was counseled on concern for caution with operating a motor vehicle while using opiate medications. PLAN: 1. We discussed treatment options with the patient today. The patient did request an increase in her oxycodone due to increasing hand pain. I encouraged her to utilize her Voltaren gel more frequently and occasional Tylenol. We will refill her Voltaren gel today with 2 additional refills. 2. I will have Dr. Jose Cruz Golden send her oxycodone 10/325, #90 to her pharmacy as well as Deya, #50 with 2 refills. These will be a total of 3 months. 3. The patient states that currently her migraine headaches have been well controlled. We will send her Topamax 25 mg, the patient takes 3 once a day, #[address] [address] PAIN MANAGEMENT CONSULTATION Name: KELSI TURCIOS Room #: REG [facility].#: [id number] Admission: 04/20/20 Attend Phys: Billie Kelly Discharge: Date of : 65 Report #: [id number] with 2 additional refills. 4. The patient denies any problems with constipation as long as she takes MiraLax on a daily basis. She does take a nap every day, but does not feel that her sleepiness is related to opioid medications. 5. We did discuss her weight; she has gained 5 pounds in the last 3 months. I encouraged her to exercise more or take walks frequently with her dog to see if that will help decrease some of her weight. The patient is seen in collaboration with Dr. Jose Cruz Golden. <ELECTRONICALLY SIGNED> By: Billie Kelly 04/20/20 1632 [id number] Billie Kelly /dago
== END ==
LOC: PAIN 06:53
DX: M19.042 Primary osteoarthritis, left hand (principal); M17.0 Bilateral primary osteoarthritis of knee; M19.072 Primary osteoarthritis, left ankle and foot; M19.071 Primary osteoarthritis, right ankle and foot; M19.041 Primary osteoarthritis, right hand; Z79.899 Other long term (current) drug therapy; Z79.891 Long term (current) use of opiate analgesic

== ENCOUNTER → 2020-07-13 | Outpatient (CLI) | payer BC ==
[~2020-07-13] VITALS: Ht 160 cm; Wt 94.4 kg
[~2020-07-13] MED LIST changes: +ENDOCET 10-3251 EACH PO; +PERCOCET 10-321 EAC1 PO
[2020-07-13 10:18] VITALS: BP 138/71
--- NOTE | 2020-07-13 10:45 | NUR ---
Pain Clinic Assessment: 1. History of Osteoarthritis: Left Lower Extremity thumbs History of Rheumatoid Arthritis: NONE 2. Height: 5 ft. 3 in. 160.0 cm. Weight: 208.2 lb. oz. 94.439 kg. Patient's BMI: 36.9 3. Vital Signs: BP: 138/71 Pulse: 76 Resp: 16 Temp: 02 Sat: 98 ECG Mon: 4. Pain Intensity: 8 5. Fall Risk: Dizziness: N Needs help standing or walking: N Fallen in the last 3 months: Y Fall risk comments: 6. Patient on Blood Thinner: NONE 7. History of Hypertension: Y 8. Opioid Therapy greater than 6 weeks: Y Opiate Contract Signed: 10/09/16 9. Risk Assessment Tool Provided: 5 MODERATE 10. Functional Assessment Tool: 11. Recreational Drug Use: Never Drug Type: Tobacco Use: Current Some Day Smoker Tobacco Type: Amount or Packs/day: How Many Years: Alcohol Use: No Frequency: Quant:
--- NOTE | 2020-07-14 09:15 | HPC ---
[facility] [place] [address] PAIN MANAGEMENT CONSULTATION Name: KELSI TURCIOS Room #: REG [facility] Humera#: [id number] Admission: 07/13/20 Attend Phys: Billie Kelly Discharge: Date of : 65 Report #: [id number] THIS REPORT FOR: cc: Ronn Chen MD, Stanley P. MD Hocker, Amanda CNS ~ CC: Jose Cruz Golden MD DATE OF SERVICE: 07/13/2020 CHIEF COMPLAINT: Chronic hand pain and migraine headaches. HISTORY OF PRESENT ILLNESS: This is a 54-year-old female who returns to the pain clinic today to discuss her opioid medications. She recently underwent left thumb surgery for her arthritis. She states it has been very painful. Her surgery was on the 06/07/2020. Her surgeon, Dr. Hernandez did provide her with 2 prescriptions for her oxycodone. At one point, she was taking as many as 6 tablets a day. She is currently back to her 3 tablets of Percocet 10/325 a day, though continued to complain of increased pain, rating her pain score today at 8/10. It is in a cast on her left hand up to her elbow. The patient is here today requesting refills of her medication, though she is due to be out a few days early. She states that any movement of her hand has been increasing her pain. She does use ice over her cast as well as all of her medications that we prescribed for her. The patient does continue to have ongoing migraines, which we also treat. She feels that the medications are beneficial in controlling that pain. ALLERGIES: RIBOFLAVIN AND CEFTIN. CURRENT LIST OF MEDICATIONS: Oxycodone 10/325 p.r.n., Fioricet, Topamax, Voltaren gel, Celebrex, Compazine, benzonatate, MiraLax, duloxetine, buspirone, alprazolam, Advair, Lunesta, verapamil, Zyrtec and Prevacid. PQRS: 1. She has diffuse osteoarthritis in her lower extremities and her hands. Denies any rheumatoid arthritis. 2. Height is 5 feet 3 inches, weight is 208, BMI is 36. 3. Vital signs; blood pressure 138/71, pulse is 76, respirations 16, oxygen sat is 98. 4. Pain score is 8/10. 5. Denies dizziness, does not need help walking or standing, has fallen in the last 3 months when she tripped over her dog. 6. Denies any blood thinners. She does take medicine for hypertension. Her opioid therapy is greater than 6 weeks; therefore, an opioid signed contract is on the chart. Risk assessment is moderate. Functional assessment is 47/70. [address] [address] PAIN MANAGEMENT CONSULTATION Name: KELSI TURCIOS Room #: REG [facility] Humera#: [id number] Admission: 07/13/20 Attend Phys: Billie Kelly Discharge: Date of : 65 Report #: [id number] 7. Recreational drug use, she denies. She is a current smoker on some days and does not drink alcohol. According to the prescription monitoring system, she has filled 2 prescriptions from her surgeon in the last 3 months as well as our medications. Today, she is about a week early for her medication refill due to her recent hand surgery. PHYSICAL EXAMINATION: GENERAL: This is alert and orientated, well-developed, well-nourished, well-hydrated 54-year-old female who appears her stated age, placing her current pain score at 8/10. HEENT: Normocephalic, atraumatic. Extraocular eye muscles are intact. She is wearing a mask. EXTREMITIES: She has a cast over her left thumb and wrist to her forearm. No swelling noted in her hands. She is able to move her fingers without difficulty. MUSCULOSKELETAL: Upper extremity strength judged to be 5/5 in all major muscle groups. She does have tenderness in her left ankle as well as her bilateral knees with no swelling. Denies headache presently. IMPRESSION: 1. Chronic intractable pain. 2. History of depression. 3. Headache disorder. 4. Osteoarthritis involving hands, knees and ankles with recent surgery of her left thumb. 5. Chronic pain with multiple pain generators. 6. Complex medical management under terms of written opioid agreement. We reviewed the fact that opiate medications are being used to provide analgesia adequate to support activities of daily living, not attempting to achieve a specific pain score on the 0-10 Visual Analog Scale. The current opiate medications are providing sufficient analgesia to allow the patient to participate in activities of daily living. The patient is not exhibiting any aberrant behavior suggestive of drug diversion. The patient is not having any adverse reactions to medications. The patient is not suffering from daytime somnolence or mental acuity changes. The patient is managing opiate-induced constipation with appropriate bydh-tsw-kvvznwf agents and dietary considerations. The patient was counseled on concern for caution with operating a motor vehicle while using opiate medications. A physical exam was performed and the patient's functional status was evaluated. All patients with back pain were advised against the bed rest greater than 4 days and were advised to return to normal activities. Pain score assessment was noted and the treatment plan was reviewed with the patient. All current medications, both prescribed and OTC were reviewed and reconciled on the [address] [place] [address] PAIN MANAGEMENT CONSULTATION Name: KELSI TURCIOS Room #: REG [facility].#: [id number] Admission: 07/13/20 Attend Phys: Billie Kelly Discharge: Date of : 65 Report #: [id number] electronic medical record. Tobacco screening was accomplished and smoking cessation was advised when indicated. BMI was noted and diet/exercise modification was recommended for all patients following outside normal parameters. I reviewed with the patient today their responsibilities to safeguard prescription medications, reviewed their responsibility to utilize medications only as prescribed by the physician. They are to seek and receive pain medications only from 1 physician group ( [facility]). They are to use 1 pharmacy and keep the clinic informed if they change pharmacies. Their responsibilities include making followup visits in a timely fashion and to avoid abrupt discontinuation of medication usage. Their responsibilities further include bringing their medications (bottles from the pharmacy with residual pills) to the visit for possible confirmation of pill counts and the patient understands it is their responsibility to submit to random drug screens to ensure both that the medications prescribed are present, and that no other controlled substances are present. All prescriptions provided today were generated electronically. PLAN: 1. We discussed treatment options with the patient today. I was encouraging her to decrease her oxycodone back to her normal dosage of 3 times a day. The patient does report she is taking 3 a day now for the past couple of days. She does have some increased pain before 8 hours is up. I encouraged her to take Tylenol Extra Strength in place of her oxycodone dose. The patient verbalizes understanding. We did discuss no more than 3000 mg of Tylenol a day. The patient is under this amount currently. 2. The patient states she did have significant constipation issues where she was taking about 6-8 oxycodone a day. She says that has resolved some since she has backed off her pain medication. I encouraged her to take knca-msu-gkidgwn stool softeners and drink plenty of liquids. 3. We will refill her medications today, allowing her to fill her pain medication today, but then the next one will be due in 30 days, as previously prescribed, scripts will be sent for her oxycodone 10/325, #90 to her pharmacy for today, 4-week and 8-week release as well as her Fioricet, #50 with 2 refills for her migraines. 4. I will refill her Topamax that she also takes for her migraines for a total of 3-month supply and she is not needing refills of her Voltaren gel. Currently, she has plenty at home that she uses for her arthritic joints. The patient will return in 3 months. At that time, we will obtain a random drug screen since it will be greater than a year. Dr. Golden collaborated care today with me. <ELECTRONICALLY SIGNED> By: Billie Kelly 07/14/20 0915 [id number] Billie Kelly /nt
== END ==
LOC: PAIN 06:48
PROVIDERS: ATTEND Clinical Nurse Specialist Adult Health
DX: G43.009 Migraine without aura, not intractable, without status migrainosus (principal); G89.4 Chronic pain syndrome; F32.9 Major depressive disorder, single episode, unspecified; M17.0 Bilateral primary osteoarthritis of knee; M19.071 Primary osteoarthritis, right ankle and foot; M19.072 Primary osteoarthritis, left ankle and foot; F11.20 Opioid dependence, uncomplicated; Z88.8 Allergy status to other drugs, medicaments and biological substances; Z79.899 Other long term (current) drug therapy

== ENCOUNTER → 2020-10-02 | Outpatient (CLI) | payer BC ==
[~2020-10-02] VITALS: Ht 160 cm; Wt 94.6 kg
[2020-10-02 13:18] VITALS: BP 169/91
--- NOTE | 2020-10-03 13:26 | HPC ---
[facility] [address] [place] [address] PAIN MANAGEMENT CONSULTATION Name: KELSI TURCIOS [id number] Admission: 10/02/20 Attend Phys: Billie Kelly Discharge: Date of : 65 Report #: [id number] THIS REPORT FOR: cc: Ronn Chen MD, Stanley P. MD Hocker, Amanda CNS ~ CC: Billie Golden MD DATE OF SERVICE: 10/02/2020 CHIEF COMPLAINT: Chronic hand pain and migraine headaches. HISTORY OF PRESENT ILLNESS: This is a 54-year-old female who is well known to the pain clinic. Today, she is returning for refill of her medications that she uses to help treat her ongoing bilateral hand pain as well as migraine headaches. She is also complaining of some low back pain, rating her pain overall at 8/10. She had undergone surgery with Dr. Hernandez for her left thumb earlier this summer. She has slight pain where her tendon repair was performed. She had had this procedure done on her right hand a year ago and that is well healed. The patient also has been complaining of low back pain as well as migraine headaches. She does find her medications very beneficial in helping reduce this pain despite having a high pain score today. Stress does increase her pain, especially her migraine and the COVID outbreak she has been having more of those. She reports she does use CBD drops as well as ice along with her medications. ALLERGIES: RIBOFLAVIN AND CEFTIN. CURRENT LIST OF MEDICATIONS: Oxycodone 10/325 p.r.n., Fioricet, Topamax, Voltaren gel, Celebrex, Compazine, benzonatate, MiraLax, Cymbalta, buspirone, meclizine, alprazolam, Advair, Lunesta, verapamil, Zyrtec, lisinopril, Prevacid. PQRS: 1. The patient has diffuse osteoarthritis in her lower extremities and hands. Denies any rheumatoid arthritis. 2. Height is 5 feet 3 inches, weight is 208, BMI is 37. Vital signs; blood pressure 169/91, pulse is 61, respirations 18, oxygen sat is 100%, pain score is 8/10. 3. Complains of slight dizziness, does not need any assistance with walking and has not fallen in the last 3 months. 4. The patient is not on any blood thinners, but she does take medicines for hypertension. 5. Her opioid therapy is greater than 6 weeks; therefore, an opioid signed contract is on the chart. She has moderate risk assessment as well as functional assessment of 47/70. [address] [address] PAIN MANAGEMENT CONSULTATION Name: KELSI TURCIOS Room #: REG [facility]#: [id number] Admission: 10/02/20 Attend Phys: Billie Kelly Discharge: Date of : 65 Report #: [id number] 6. Recreational drug use, she denies. She is a current smoker of some cigarettes occasionally and does not drink alcohol. According to the prescription monitoring system, she is due to fill her medications this week, filling in a timely fashion. She does take a benzodiazepine and has been closely monitored on her polypharmacy. She has significantly decreased these meds since she has been coming to our office. We will check a random drug screen on her at her next visit. PHYSICAL EXAMINATION: GENERAL: This is alert and orientated, very anxious and talkative 54-year-old who is well-hydrated. She appears her stated age, placing her current pain score of 8/10. HEENT: Normocephalic and atraumatic. Extraocular eye muscles are intact. She is wearing a mask. MUSCULOSKELETAL: She has an well-healed incision on her bilateral wrists with no swelling noted. She is able to move all fingers without any difficulty. She has tenderness in the lumbosacral region today with no radicular symptoms. IMPRESSION: 1. Chronic intractable pain. 2. History of depression. 3. Headache disorder. 4. Osteoarthritis involving hands, knees, ankles with recent surgery to her bilateral thumbs. 5. Chronic pain with multiple pain generators. 6. Obesity. 7. Complicated medical management under terms of written opioid agreement. We reviewed the fact that opiate medications are being used to provide analgesia adequate to support activities of daily living, not attempting to achieve a specific pain score on the 0-10 Visual Analog Scale. The current opiate medications are providing sufficient analgesia to allow the patient to participate in activities of daily living. The patient is not exhibiting any aberrant behavior suggestive of drug diversion. The patient is not having any adverse reactions to medications. The patient is not suffering from daytime somnolence or mental acuity changes. The patient is managing opiate-induced constipation with appropriate zssb-vpm-cxwvzhx agents and dietary considerations. The patient was counseled on concern for caution with operating a motor vehicle while using opiate medications. A physical exam was performed and the patient's functional status was evaluated. All patients with back pain were advised against the bed rest greater than 4 days and were advised to return to normal activities. Pain score assessment was noted and the treatment plan was reviewed with the patient. All current medications, both prescribed and OTC were reviewed and reconciled on the [address] [address] PAIN MANAGEMENT CONSULTATION Name: KELSI TURCIOS Room #: REG [facility]#: [id number] Admission: 10/02/20 Attend Phys: Billie MCNEIL Leticia Discharge: Date of : 65 Report #: [id number] electronic medical record. Tobacco screening was accomplished and smoking cessation was advised when indicated. BMI was noted and diet/exercise modification was recommended for all patients following outside normal parameters. I reviewed with the patient today their responsibilities to safeguard prescription medications, reviewed their responsibility to utilize medications only as prescribed by the physician. They are to seek and receive pain medications only from 1 physician group ( [facility]). They are to use 1 pharmacy and keep the clinic informed if they change pharmacies. Their responsibilities include making followup visits in a timely fashion and to avoid abrupt discontinuation of medication usage. Their responsibilities further include bringing their medications (bottles from the pharmacy with residual pills) to the visit for possible confirmation of pill counts and the patient understands it is their responsibility to submit to random drug screens to ensure both that the medications prescribed are present, and that no other controlled substances are present. All prescriptions provided today were generated electronically. PLAN: 1. We discussed treatment options with the patient today. She has continued to recover from her left thumb [facility] joint arthroplasty and left thumb metacarpal flexor carpi radialis tendon transfer, which was performed by Dr. Hernandez in May. She is aware that it may take some time for it to totally heal, but she feels that she has more range of motion than she did prior to surgery and less pain. She is no longer wearing her splints and does do stretching and exercising at home. She finds the Voltaren gel very beneficial in helping with some of this arthritic pain in her hands and we will refill this medication today sending that electronically for 2 tubes with 2 refills. I did inform her since it is igcv-jtx-cxmwjyf now in the same prescription strength that if may not be filled by prescription strength. There is a possibility that her insurance company will not cover this. 2. We will also send her Fioricet, #50 with 2 additional refills and her Percocet 10/325, #90 for today, 4-week and 8-week release and Topamax, #90 with 5 refills. 3. The patient is seen today in collaboration with Dr. Jose Cruz Golden. The patient will return in 3 months or as needed for medication management. <ELECTRONICALLY SIGNED> By: Billie Kelly 10/03/20 1326 [id number] Billie Kelly /nt
== END ==
LOC: PAIN 06:59
PROVIDERS: ATTEND Clinical Nurse Specialist Adult Health
DX: G43.009 Migraine without aura, not intractable, without status migrainosus (principal); G89.29 Other chronic pain; E66.9 Obesity, unspecified; F11.20 Opioid dependence, uncomplicated; M19.042 Primary osteoarthritis, left hand; M19.041 Primary osteoarthritis, right hand; M17.0 Bilateral primary osteoarthritis of knee; M19.072 Primary osteoarthritis, left ankle and foot; M19.071 Primary osteoarthritis, right ankle and foot; Z88.8 Allergy status to other drugs, medicaments and biological substances; Z79.899 Other long term (current) drug therapy

== ENCOUNTER → 2020-12-28 | Outpatient (CLI) | payer BC, OTHER ==
[~2020-12-28] VITALS: Ht 160 cm; Wt 92.4 kg
[~2020-12-28] MED LIST changes: +COLLAGEN PLUS1 EACH PO
[2020-12-28 10:46] VITALS: BP 162/85
--- NOTE | 2020-12-28 11:21 | NUR ---
Pain Clinic Assessment: 1. History of Osteoarthritis: Left Lower Extremity thumbs History of Rheumatoid Arthritis: NONE 2. Height: 5 ft. 3 in. 160.0 cm. Weight: 203.8 lb. oz. 92.443 kg. Patient's BMI: 36.1 3. Vital Signs: BP: 162/85 Pulse: 84 Resp: 16 Temp: 02 Sat: 98 ECG Mon: 4. Pain Intensity: 7 ANKLE 2 OTHER PAIN 5. Fall Risk: Dizziness: Y Needs help standing or walking: N Fallen in the last 3 months: N Fall risk comments: 6. Patient on Blood Thinner: NONE 7. History of Hypertension: Y 8. Opioid Therapy greater than 6 weeks: Y Opiate Contract Signed: 10/09/16 9. Risk Assessment Tool Provided: 5 MODERATE 10. Functional Assessment Tool: 11. Recreational Drug Use: Never Drug Type: Tobacco Use: Vaping Tobacco Type: E-Cigarettes Amount or Packs/day: How Many Years: Alcohol Use: No Frequency: Quant:
== END ==
LOC: PAIN 06:54
PROVIDERS: ATTEND Anesthesiology Pain Medicine
DX: R51.9 Headache, unspecified (principal); G89.29 Other chronic pain; F32.9 Major depressive disorder, single episode, unspecified; M19.90 Unspecified osteoarthritis, unspecified site; E66.9 Obesity, unspecified; F11.20 Opioid dependence, uncomplicated; F41.9 Anxiety disorder, unspecified; Z88.8 Allergy status to other drugs, medicaments and biological substances; Z79.899 Other long term (current) drug therapy

== ENCOUNTER → 2021-02-22 | Outpatient (CLI) | payer BC, OTHER ==
[~2021-02-22] VITALS: Ht 160 cm; Wt 90.6 kg
[2021-02-22 09:50] VITALS: BP 132/92
--- NOTE | 2021-02-22 09:59 | NUR ---
Pain Clinic Assessment: 1. History of Osteoarthritis: Left Lower Extremity thumbs History of Rheumatoid Arthritis: NONE 2. Height: 5 ft. 3 in. 160.0 cm. Weight: 199.8 lb. oz. 90.629 kg. Patient's BMI: 35.4 3. Vital Signs: BP: 132/92 Pulse: 82 Resp: 16 Temp: 02 Sat: 98 ECG Mon: 4. Pain Intensity: 6 5. Fall Risk: Dizziness: N Needs help standing or walking: N Fallen in the last 3 months: N Fall risk comments: 6. Patient on Blood Thinner: NONE 7. History of Hypertension: Y 8. Opioid Therapy greater than 6 weeks: Y Opiate Contract Signed: 10/09/16 9. Risk Assessment Tool Provided: 5 MODERATE 10. Functional Assessment Tool: 11. Recreational Drug Use: Never Drug Type: Tobacco Use: Vaping Tobacco Type: E-Cigarettes Amount or Packs/day: How Many Years: Alcohol Use: No Frequency: Quant:
== END ==
LOC: PAIN 06:46
PROVIDERS: ATTEND Clinical Nurse Specialist Adult Health
DX: R51.9 Headache, unspecified (principal); G89.29 Other chronic pain; F41.9 Anxiety disorder, unspecified; M19.90 Unspecified osteoarthritis, unspecified site; M79.10 Myalgia, unspecified site; M79.672 Pain in left foot; F11.20 Opioid dependence, uncomplicated; Z88.8 Allergy status to other drugs, medicaments and biological substances; Z79.899 Other long term (current) drug therapy

== ENCOUNTER → 2021-05-14 | Outpatient (CLI) | payer BC, OTHER ==
[~2021-05-14] VITALS: Ht 160 cm; Wt 89.5 kg
[~2021-05-14] MED LIST changes: +DICLOFENAC SOD100 GM PO; +VIBRAMYCIN 100100 MG PO
[2021-05-14 09:18] VITALS: BP 163/93
--- NOTE | 2021-05-14 09:43 | NUR ---
Pain Clinic Assessment: 1. History of Osteoarthritis: Left Lower Extremity thumbs feet History of Rheumatoid Arthritis: NONE 2. Height: 5 ft. 3 in. 160.0 cm. Weight: 197.3 lb. oz. 89.495 kg. Patient's BMI: 35.0 3. Vital Signs: BP: 163/93 Pulse: 74 Resp: 16 Temp: 02 Sat: 100 ECG Mon: 4. Pain Intensity: 6-7 5. Fall Risk: Dizziness: Y Needs help standing or walking: N Fallen in the last 3 months: N Fall risk comments: 6. Patient on Blood Thinner: NONE 7. History of Hypertension: Y 8. Opioid Therapy greater than 6 weeks: Y Opiate Contract Signed: 10/09/16 9. Risk Assessment Tool Provided: 5 MODERATE 10. Functional Assessment Tool: 11. Recreational Drug Use: Never Drug Type: Tobacco Use: Vaping Tobacco Type: Amount or Packs/day: How Many Years: Alcohol Use: No Frequency: Quant:
== END ==
LOC: PAIN 07:02
PROVIDERS: ATTEND Clinical Nurse Specialist Adult Health
DX: R51.9 Headache, unspecified (principal); G89.29 Other chronic pain; M19.90 Unspecified osteoarthritis, unspecified site; F32.9 Major depressive disorder, single episode, unspecified; F41.9 Anxiety disorder, unspecified; E66.9 Obesity, unspecified; M54.5 Low back pain; M79.671 Pain in right foot; M79.672 Pain in left foot; M19.072 Primary osteoarthritis, left ankle and foot; M19.071 Primary osteoarthritis, right ankle and foot; Z79.891 Long term (current) use of opiate analgesic; Z79.899 Other long term (current) drug therapy

== ENCOUNTER 2021-06-22 01:16 | Emergency (ER) | payer BC, OTHER ==
[~2021-06-22] VITALS: Ht 162.6 cm; Wt 88.5 kg
[2021-06-22] MEDS ORDERED: TOPAMAX 25 MG T25 M1 PO (01:34)
[2021-06-22 02:49] LABS: ABSOLUTE NEUTROPHILS 4.2 thou/uL (1.4-8.2); BASOPHILS 0.8 % (0.0-2.0); EOSINOPHILS 3.1 % (0.0-3.0); HEMATOCRIT 38.1 % (37.0-47.0); HEMOGLOBIN 13.1 gm/dL (12.0-15.0); MCH 32.1 pg (26.0-34.0); MCHC 34.3 g/dL (28.0-37.0); MCV 93.8 fL (80.0-100.0); MONOCYTES 7.1 % (1.0-8.0); PLATELET COUNT 265 thou/uL (150-400); RBC 4.06 mil/uL (4.20-5.00); RDW 13.1 % (10.5-14.5)
[2021-06-22 02:53] LABS: URINE BILIRUBIN NEGATIVE (Negative); URINE BLOOD NEGATIVE (Negative); URINE CLARITY SL CLOUDY; URINE COLOR YELLOW; URINE GLUCOSE-RANDOM* NEGATIVE (Negative); URINE KETONES NEGATIVE (Negative); URINE LEUKOCYTES-REFLEX TRACE (Negative); URINE NITRITE-REFLEX NEGATIVE (Negative); URINE PROTEIN (DIPSTICK) NEGATIVE (Negative); URINE UROBILINOGEN 0.2 E.U./dl (0.2-1.0)
[2021-06-22 02:54] LABS: ANION GAP 8 mmol/L (7-16); BUN 21 mg/dL (7-18); CALCIUM 8.9 mg/dL (8.5-10.1); CHLORIDE 102 mmol/L (98-107); CO2 30 mmol/L (21-32); GLUCOSE 109 mg/dL (74-106); POTASSIUM 3.7 mmol/L (3.5-5.1); SODIUM 140 mmol/L (136-145)
[2021-06-22 03:07] LABS: ALBUMIN 3.8 g/dL (3.4-5.0); DIRECT BILIRUBIN < 0.1 mg/dL (<0.1-0.2); LIPASE 123 U/L (73-393); SGOT 55 U/L (15-37); SGPT 48 U/L (14-59); TOTAL BILIRUBIN 0.3 mg/dL (0.2-1.0); TOTAL PROTEIN 6.8 g/dL (6.4-8.2); TROPONIN-I <0.06 ng/mL (<0.06)
[2021-06-22] MEDS ORDERED: CARAFATE 1 GM TA1 G1 PO (05:43)
[2021-06-22 06:06] VITALS: BP 154/88
--- NOTE | 2021-06-22 07:20 | EKG ---
[place] [address] [facility] [place] [address] ELECTROCARDIOGRAM REPORT Name: KELSI TURCIOS Room #: [facility]#: [id number] Admission: 06/22/21 Attend Phys: Discharge: 06/22/21 Date of : 65 Report #: [id number] [facility] ED Test Date: 2021-06-22 Test Time: 02:47:02 Pat Name: KELSI TURCIOS Department: Room: Gender: F Food Manager: cecille : 1965 Requested By: Estela Mora Order Number: [id number] MD: Keagan Eubanks Measurements Intervals [place] Rate: 64 P: 57 SD: 183 QRS: 31 QRSD: 85 T: 46 QT: 431 QTc: 445 Interpretive Statements Sinus rhythm Low voltage, precordial leads Nonspecific T abnormalities, anterior leads Compared to ECG 10/17/2015 20:52:09 Low QRS voltage now present T-wave abnormality now present Electronically Signed On 06-22-2021 7:20:12 CDT by Keagan Eubanks [email or web address] <ELECTRONICALLY SIGNED> By: Keagan Eubanks MD, [facility] [id number] [phone] Keagan Eubanks MD, [facility] /EPI
== END 2021-06-22 06:12 | disposition home or self-care (01) ==
LOC: ER 01:16
PROVIDERS: Emergency Medicine
DX: K29.70 Gastritis, unspecified, without bleeding (principal); D64.9 Anemia, unspecified; I10 Essential (primary) hypertension; M19.90 Unspecified osteoarthritis, unspecified site; G43.909 Migraine, unspecified, not intractable, without status migrainosus; F17.210 Nicotine dependence, cigarettes, uncomplicated; K21.9 Gastro-esophageal reflux disease without esophagitis; Z90.89 Acquired absence of other organs; Z79.899 Other long term (current) drug therapy; Z88.1 Allergy status to other antibiotic agents; Z88.6 Allergy status to analgesic agent

== ENCOUNTER → 2021-07-12 | Outpatient (CLI) | payer BC, OTHER ==
[~2021-07-12] VITALS: Ht 160 cm; Wt 90.3 kg
[~2021-07-12] MED LIST changes: +CARAFATE 1 GM TA1 G1 PO
[2021-07-12 09:42] VITALS: BP 179/100
--- NOTE | 2021-07-12 09:52 | NUR ---
Pain Clinic Assessment: 1. History of Osteoarthritis: Left Lower Extremity thumbs feet History of Rheumatoid Arthritis: NONE 2. Height: 5 ft. 3 in. 160.0 cm. Weight: 199.0 lb. oz. 90.266 kg. Patient's BMI: 35.3 3. Vital Signs: BP: 179/100 Pulse: 80 Resp: 16 Temp: 02 Sat: 98 ECG Mon: 4. Pain Intensity: 5 5. Fall Risk: Dizziness: Y Needs help standing or walking: N Fallen in the last 3 months: N Fall risk comments: 6. Patient on Blood Thinner: NONE 7. History of Hypertension: Y 8. Opioid Therapy greater than 6 weeks: Y Opiate Contract Signed: 10/09/16 9. Risk Assessment Tool Provided: 5 MODERATE 10. Functional Assessment Tool: 50/70 11. Recreational Drug Use: Never Drug Type: Tobacco Use: Vaping Tobacco Type: Amount or Packs/day: How Many Years: Alcohol Use: No Frequency: Quant:
== END ==
LOC: PAIN 07-11 10:20
PROVIDERS: ATTEND Clinical Nurse Specialist Adult Health
DX: R51.9 Headache, unspecified (principal); G89.29 Other chronic pain; M19.90 Unspecified osteoarthritis, unspecified site; I10 Essential (primary) hypertension; F32.9 Major depressive disorder, single episode, unspecified; F41.9 Anxiety disorder, unspecified; Z56.0 Unemployment, unspecified; Z79.891 Long term (current) use of opiate analgesic; Z79.899 Other long term (current) drug therapy

== ENCOUNTER → 2021-10-01 | Outpatient (CLI) | payer BC, OTHER ==
[~2021-10-01] VITALS: Ht 160 cm; Wt 88.9 kg
[2021-10-01 10:56] VITALS: BP 129/73
--- NOTE | 2021-10-01 11:01 | NUR ---
Pain Clinic Assessment: 1. History of Osteoarthritis: Left Lower Extremity thumbs feet History of Rheumatoid Arthritis: NONE 2. Height: 5 ft. 3 in. 160.0 cm. Weight: 196.0 lb. oz. 88.905 kg. Patient's BMI: 34.7 3. Vital Signs: BP: 129/73 Pulse: 87 Resp: 16 Temp: 02 Sat: 97 ECG Mon: 4. Pain Intensity: 6 5. Fall Risk: Dizziness: N Needs help standing or walking: N Fallen in the last 3 months: N Fall risk comments: 6. Patient on Blood Thinner: NONE 7. History of Hypertension: Y 8. Opioid Therapy greater than 6 weeks: Y Opiate Contract Signed: 10/09/16 9. Risk Assessment Tool Provided: 5 MODERATE 10. Functional Assessment Tool: 50/ 11. Recreational Drug Use: Never Drug Type: Tobacco Use: Vaping Tobacco Type: Amount or Packs/day: How Many Years: Alcohol Use: No Frequency: Quant:
== END ==
LOC: PAIN 08:05
PROVIDERS: ATTEND Clinical Nurse Specialist Adult Health
DX: G89.29 Other chronic pain (principal); R51.9 Headache, unspecified; M19.042 Primary osteoarthritis, left hand; M19.041 Primary osteoarthritis, right hand; M79.643 Pain in unspecified hand; M54.50 Low back pain, unspecified; M53.3 Sacrococcygeal disorders, not elsewhere classified; M79.7 Fibromyalgia; M19.079 Primary osteoarthritis, unspecified ankle and foot; F41.8 Other specified anxiety disorders; Z88.8 Allergy status to other drugs, medicaments and biological substances; Z79.899 Other long term (current) drug therapy

== ENCOUNTER → 2021-10-22 | Outpatient (CLI) | payer BC, OTHER ==
[~2021-10-22] VITALS: Ht 160 cm; Wt 89.6 kg
[2021-10-22 10:03] VITALS: BP 138/88
--- NOTE | 2021-10-22 10:26 | NUR ---
Pain Clinic Assessment: 1. History of Osteoarthritis: Left Lower Extremity thumbs feet History of Rheumatoid Arthritis: NONE 2. Height: 5 ft. 3 in. 160.0 cm. Weight: 197.6 lb. oz. 89.631 kg. Patient's BMI: 35.0 3. Vital Signs: BP: 138/88 Pulse: 87 Resp: 17 Temp: 02 Sat: 98 ECG Mon: 4. Pain Intensity: 7 5. Fall Risk: Dizziness: N Needs help standing or walking: N Fallen in the last 3 months: Y Fall risk comments: 6. Patient on Blood Thinner: NONE 7. History of Hypertension: Y 8. Opioid Therapy greater than 6 weeks: Y Opiate Contract Signed: 10/09/16 9. Risk Assessment Tool Provided: 5 MODERATE 10. Functional Assessment Tool: 50/ 11. Recreational Drug Use: Never Drug Type: Tobacco Use: Vaping Tobacco Type: Amount or Packs/day: How Many Years: Alcohol Use: No Frequency: Quant:
== END | disposition home or self-care (01) ==
LOC: PAIN 09:18
PROVIDERS: ATTEND Anesthesiology Pain Medicine
DX: M53.3 Sacrococcygeal disorders, not elsewhere classified (principal); G89.29 Other chronic pain; I10 Essential (primary) hypertension; G43.909 Migraine, unspecified, not intractable, without status migrainosus; M19.90 Unspecified osteoarthritis, unspecified site; Z98.890 Other specified postprocedural states; Z79.899 Other long term (current) drug therapy; Z88.8 Allergy status to other drugs, medicaments and biological substances

== ENCOUNTER → 2021-11-22 | Outpatient (CLI) | payer BC, OTHER ==
[~2021-11-22] VITALS: Ht 160 cm; Wt 88.6 kg
--- NOTE | 2021-11-22 09:24 | NUR ---
Pain Clinic Assessment: 1. History of Osteoarthritis: Left Lower Extremity thumbs feet History of Rheumatoid Arthritis: NONE 2. Height: ft. in. cm. Weight: lb. oz. kg. Patient's BMI: 3. Vital Signs: BP: Pulse: Resp: Temp: 02 Sat: ECG Mon: 4. Pain Intensity: 2 5. Fall Risk: Dizziness: N Needs help standing or walking: N Fallen in the last 3 months: N Fall risk comments: 6. Patient on Blood Thinner: NONE 7. History of Hypertension: Y 8. Opioid Therapy greater than 6 weeks: Y Opiate Contract Signed: 10/09/16 9. Risk Assessment Tool Provided: 5 MODERATE 10. Functional Assessment Tool: 50/70 11. Recreational Drug Use: Never Drug Type: Tobacco Use: Vaping Tobacco Type: Amount or Packs/day: How Many Years: Alcohol Use: No Frequency: Quant:
[2021-11-22 09:50] VITALS: BP 136/80
--- NOTE | 2021-11-22 09:55 | NUR ---
Pain Clinic Assessment: 1. History of Osteoarthritis: Left Lower Extremity thumbs feet History of Rheumatoid Arthritis: NONE 2. Height: 5 ft. 3 in. 160.0 cm. Weight: 195.4 lb. oz. 88.633 kg. Patient's BMI: 34.6 3. Vital Signs: BP: 136/80 Pulse: 72 Resp: 20 Temp: 02 Sat: 98 ECG Mon: 4. Pain Intensity: 2 5. Fall Risk: Dizziness: N Needs help standing or walking: N Fallen in the last 3 months: N Fall risk comments: 6. Patient on Blood Thinner: NONE 7. History of Hypertension: Y 8. Opioid Therapy greater than 6 weeks: Y Opiate Contract Signed: 10/09/16 9. Risk Assessment Tool Provided: 5 MODERATE 10. Functional Assessment Tool: 50/ 11. Recreational Drug Use: Never Drug Type: Tobacco Use: Vaping Tobacco Type: Amount or Packs/day: How Many Years: Alcohol Use: No Frequency: Quant:
== END ==
LOC: PAIN 08:56
PROVIDERS: ATTEND Anesthesiology Pain Medicine
DX: G89.29 Other chronic pain (principal); M54.50 Low back pain, unspecified; M19.042 Primary osteoarthritis, left hand; M19.041 Primary osteoarthritis, right hand; R51.9 Headache, unspecified; Z88.8 Allergy status to other drugs, medicaments and biological substances; Z79.899 Other long term (current) drug therapy

== ENCOUNTER → 2021-12-31 | Outpatient (CLI) | payer BC, OTHER ==
[~2021-12-31] VITALS: Ht 162.6 cm; Wt 88.3 kg
[~2021-12-31] MED LIST changes: +ARTHRITIS PAIN100 GM TOP; +CARAFATE1 GM PO
[2021-12-31 10:33] VITALS: BP 127/75
--- NOTE | 2021-12-31 10:52 | NUR ---
Pain Clinic Assessment: 1. History of Osteoarthritis: Left Lower Extremity thumbs feet History of Rheumatoid Arthritis: NONE 2. Height: 5 ft. 4 in. 162.6 cm. Weight: 194.6 lb. oz. 88.270 kg. Patient's BMI: 33.4 3. Vital Signs: BP: 127/75 Pulse: 79 Resp: 20 Temp: 02 Sat: 97 ECG Mon: 4. Pain Intensity: 8 5. Fall Risk: Dizziness: Y Needs help standing or walking: N Fallen in the last 3 months: N Fall risk comments: 6. Patient on Blood Thinner: NONE 7. History of Hypertension: Y 8. Opioid Therapy greater than 6 weeks: Y Opiate Contract Signed: 10/09/16 9. Risk Assessment Tool Provided: 5 MODERATE 10. Functional Assessment Tool: 50/ 11. Recreational Drug Use: Never Drug Type: Tobacco Use: Vaping Tobacco Type: E-Cigarettes Amount or Packs/day: How Many Years: Alcohol Use: No Frequency: Quant:
== END ==
LOC: PAIN 08:40
PROVIDERS: ATTEND Clinical Nurse Specialist Adult Health
DX: M54.50 Low back pain, unspecified (principal); G89.29 Other chronic pain; M53.3 Sacrococcygeal disorders, not elsewhere classified; M79.673 Pain in unspecified foot; M19.079 Primary osteoarthritis, unspecified ankle and foot; M19.049 Primary osteoarthritis, unspecified hand; G44.221 Chronic tension-type headache, intractable; F43.9 Reaction to severe stress, unspecified; Z79.899 Other long term (current) drug therapy; Z88.8 Allergy status to other drugs, medicaments and biological substances